=== PATIENT | female | born 1980 | race African-American/Black ===

== ENCOUNTER 2021-02-17 08:52 | Emergency (ER) | payer OTHER, SELFPAY ==
--- NOTE | ~2021-02-17 | CT_ITS ---
EXAMINATION: CT HEAD WITHOUT CONTRAST CLINICAL INFORMATION: Headache and dizziness. COMPARISON: None TECHNIQUE: Contiguous axial imaging was performed from the skull base to vertex without intravenous administration of contrast. This CT examination was performed using dose optimization techniques as appropriate, variously including the following: *Automated exposure control *Adjustment of mA and/or kV according to patient size (this includes techniques or standardized protocols for targeted exams where dose is matched to indication/reason for exam; i.e. extremities or head) *Use of iterative reconstruction technique DLP: 669 mGy-cm FINDINGS: There is no evidence of acute intracranial hemorrhage or territorial infarction. No abnormal mass effect or midline shift is seen. [place] to white matter differentiation is well preserved. No extra-axial fluid collections are identified. The ventricles are normal in size. There is no abnormal attenuation within the brain parenchyma. The osseous structures and soft tissues are normal. The mastoid air cells and visualized portions of the paranasal sinuses are well aerated. CT/CT head/brain wo con IMPRESSION: No acute intracranial process seen.
[2021-02-17 09:04] VITALS: BP 109/57; PULSE 78; RESP 14; TEMP 37; O2SAT 98; BMI 33.9
--- NOTE | 2021-02-17 09:14 | ED_ITS ---
HPI - Dizziness General Chief Complaint: Dizziness Stated Complaint: general complaints Time Seen by Provider: 02/17/21 09:14 Source: patient Mode of arrival: ambulatory Limitations: no limitations History of Present Illness MD elicited complaint: lightheadedness and other (headaches, nausea, vomiting) Onset (ago): week(s) (2 weeks ago but worse last 4 days, thinks it was related to her COVID shot) Timing: gradual onset and intermittent Severity: moderate Description: lightheadedness Exacerbating factors: nothing Relieving factors: nothing Associated symptoms: nausea, vomiting and other (headaches, ear fullness, feels blocked) Related Data Previous Rx's Medication Instructions Recorded cetirizine 10 mg tablet 10 mg PO DAILY PRN #30 tab 02/17/21 meclizine 25 mg tablet 25 mg PO TID PRN #30 tab 02/17/21 ondansetron 4 mg disintegrating 4 mg PO Q8H PRN #20 tab 02/17/21 tablet Allergies Allergy/AdvReac Type Severity Reaction Status Date / Time apple [APPLE] Allergy Mild ITCHYNESS. Unverified 03/11/20 15:30 SWELLING TO LIP AND GUMS roth Allergy Mild ITCHYNESS. Unverified 03/11/20 15:30 SWELLING TO LIP AND GUMS kiwi [KIWI] Allergy Mild ITCHNESS. Unverified 03/11/20 15:30 GUM AND LIP SWELLING peach [PEACH] Allergy Mild ITCHYNESS. Unverified 03/11/20 15:30 SWELLING TO LIP AND GUMS oxycodone [OXYCODONE] Allergy Unknown ITCHING Unverified 03/11/20 15:30 pear [PEAR] Allergy Unknown ITCHING Unverified 03/11/20 15:30 seasonal Allergy Unknown Unverified 07/17/17 00:00 Review of Systems Review of Systems: Constitutional : No Weight loss, No Fever, No Chills, No Fatigue, No Malaise ENT/Mouth : No sore throat, No Rhinorrhea Eyes: No Eye Pain, No Swelling, No Redness Cardiovascular : No Chest Pain, No SOB, No Dyspnea on Exertion, No Orthopnea, No Edema, No Palpitations Respiratory : No Cough, No Sputum, No Wheezing Gastrointestinal : No Nausea, No Vomiting, No Diarrhea, No Constipation, No abdominal Pain, No Hematochezia, No Melena Genitourinary : No Dysuria, No Urinary Frequency, No Hematuria, Musculoskeletal : No joint pain, No Myalgias, No Joint Swelling Skin : No Skin Lesions, No rash Neuro : No Weakness, No Numbness, No Dizziness, No Headache Psych : No Anxiety/Panic, No Depression Heme/Lymph: No Bruising, No Bleeding,No Lymphadenopathy Endocrine : No Polyuria, No Polydipsia All other systems reviewed and are negative [facility] Past Medical History Attestation statement: The following information was validated with the patient. Medical History Asthma Surgical History (Updated 02/17/21 @ 09:07 by Anuj Douglass) History of tonsillectomy Social History Social History (Updated 02/17/21 @ 09:45 by Sarah Tucker DO) Patient Tobacco Use Status: Never used Tobacco Use of substances other than those prescribed or required for medical reasons: No Advance Directives: No Advance Directives Information Provided: Yes Patient : No Physical Exam Vital Signs: Vital Signs: Last Vital Signs Temp 98.6 F 02/17/21 09:04 Pulse 78 02/17/21 09:04 Resp 14 02/17/21 09:04 BP 109/57 L 02/17/21 09:04 Pulse Ox 98 02/17/21 09:04 Body Mass Index 33.9 Appearance: Alert. Oriented X3. No acute distress. Eyes: Pupils equal, round and reactive to light. ENT: Pharynx normal. bilateral TMs serous effusions Neck: Normal inspection. Neck supple. CVS: Normal heart rate and rhythm. Pulses normal. Respiratory: No respiratory distress. Breath sounds normal. Abdomen: Soft and non-tender. Skin: Skin warm and dry. Normal skin color. Normal skin turgor. Extremities: No lower extremity edema. No calf ttp Neuro: Oriented X 3. No motor deficit. No sensory deficit. Course Course Course Narrative: workup negative stable for DC MDM - Dizziness MDM Narrative Medical decision making narrative: 40 yo female with asthma 2 weeks post COVID shot c/o dizziness, nausea, ears feel blocked since vaccine but worse over past 4 days at this time will need labs, IVF< CT head suspect deeper sinusitis, dispo per results and findings. Lab Data Result diagrams: 02/17/21 09:41 02/17/21 09:41 Labs: Lab Results 02/17/21 02/17/21 02/17/21 Range/Units 09:21 09:41 09:41 WBC 7.3 (4.8-10.8) X10*3/uL RBC 4.07 L (4.20-5.50) X10*6/uL Hgb 11.5 L (12.0-16.0) g/dl Hct 36.8 L (37-47) % MCV 90.4 (80-98) fL MCH 28.3 (27.0-33.0) pg MCHC 31.3 (31.0-35.0) g/dl RDW 13.3 (11.0-16.0) % Plt Count 293 (160-400) X10*3/uL MPV 9.8 (9.4-12.3) fL Immature Gran % (Auto) 0.4 (0.0-0.4) % Neut % (Auto) 68.0 (45-73) % Lymph % (Auto) 17.8 L (20-40) % [place] % (Auto) 9.8 (2-11) % Eos % (Auto) 2.9 (0-4) % Baso % (Auto) 1.1 (0-2) % Lymph # (Auto) 1.3 (1.2-4.9) X10*3/uL [place] # (Auto) 0.7 (0.1-1.2) X10*3/uL Eos # (Auto) 0.2 (0.0-0.4) X10*3/uL Baso # (Auto) 0.1 (0.0-0.2) X10*3/uL Abs Immat Gran (auto) 0.03 (0.00-0.03) X10*3/uL Absolute Neuts (auto) 5.0 (2.0-8.3) X10*3/uL Absolute Nucleated RBC 0.000 (0.0-0.012) X10*3/uL Nucleated RBC % (auto) 0.0 (0.0-0.2) /100WBC Sodium 140 (135-145) mmol/L Potassium 4.5 (3.3-5.1) mmol/L Chloride 109 H (96-108) mmol/L Carbon Dioxide 23 (22-29) mmol/L Anion Gap 13 (12-20) BUN 10 (9-16) mg/dL Creatinine 0.71 (0.5-1.4) mg/dL Estim Creat Clear Calc 122.5 Estimated GFR > 60 Random Glucose 86 (60-115) mg/dL Calcium 9.0 (8.4-10.2) mg/dL Magnesium 2.1 (1.6-2.6) mg/dL Total Bilirubin 0.6 (0.0-1.0) mg/dL Direct Bilirubin < 0.2 (0.0-0.5) mg/dL AST 24 (5-31) U/L ALT 21 (0-31) U/L Alkaline Phosphatase 49 (39-117) U/L Total Protein 6.7 (6.5-8.0) g/dL Albumin 4.1 (3.5-5.0) g/dL Lipase 56 (8-78) U/L Urine Color Urine Appearance Urine pH (5.0-8.0) Ur Specific [place] (1.005-1.025) Urine Protein (NEG-TRACE) MG/DL Urine Glucose (UA) (NEG) MG/DL Urine Ketones (NEG) MG/DL Urine Blood (NEG) Urine Nitrite (NEG) Ur Leukocyte Esterase (NEG) Urine RBC (0) /HPF Urine WBC (0-4) /HPF Ur Squamous Epith Cells /LPF Urine Bacteria /LPF Coronavirus (PCR) NEGATIVE (Negative) Influenza Type A (PCR) NEGATIVE (Negative) Influenza Type B (PCR) NEGATIVE (Negative) RSV RNA Qual (PCR) NEGATIVE (Negative) 02/17/21 Range/Units 10:36 WBC (4.8-10.8) X10*3/uL RBC (4.20-5.50) X10*6/uL Hgb (12.0-16.0) g/dl Hct (37-47) % MCV (80-98) fL MCH (27.0-33.0) pg MCHC (31.0-35.0) g/dl RDW (11.0-16.0) % Plt Count (160-400) X10*3/uL MPV (9.4-12.3) fL Immature Gran % (Auto) (0.0-0.4) % Neut % (Auto) (45-73) % Lymph % (Auto) (20-40) % [place] % (Auto) (2-11) % Eos % (Auto) (0-4) % Baso % (Auto) (0-2) % Lymph # (Auto) (1.2-4.9) X10*3/uL [place] # (Auto) (0.1-1.2) X10*3/uL Eos # (Auto) (0.0-0.4) X10*3/uL Baso # (Auto) (0.0-0.2) X10*3/uL Abs Immat Gran (auto) (0.00-0.03) X10*3/uL Absolute Neuts (auto) (2.0-8.3) X10*3/uL Absolute Nucleated RBC (0.0-0.012) X10*3/uL Nucleated RBC % (auto) (0.0-0.2) /100WBC Sodium (135-145) mmol/L Potassium (3.3-5.1) mmol/L Chloride (96-108) mmol/L Carbon Dioxide (22-29) mmol/L Anion Gap (12-20) BUN (9-16) mg/dL Creatinine (0.5-1.4) mg/dL Estim Creat Clear Calc Estimated GFR Random Glucose (60-115) mg/dL Calcium (8.4-10.2) mg/dL Magnesium (1.6-2.6) mg/dL Total Bilirubin (0.0-1.0) mg/dL Direct Bilirubin (0.0-0.5) mg/dL AST (5-31) U/L ALT (0-31) U/L Alkaline Phosphatase (39-117) U/L Total Protein (6.5-8.0) g/dL Albumin (3.5-5.0) g/dL Lipase (8-78) U/L Urine Color YELLOW Urine Appearance HAZY Urine pH 7.5 (5.0-8.0) Ur Specific [place] 1.010 (1.005-1.025) Urine Protein NEG (NEG-TRACE) MG/DL Urine Glucose (UA) NEG (NEG) MG/DL Urine Ketones NEG (NEG) MG/DL Urine Blood NEG (NEG) Urine Nitrite NEG (NEG) Ur Leukocyte Esterase 1+ H (NEG) Urine RBC 0 (0) /HPF Urine WBC 1-4 (0-4) /HPF Ur Squamous Epith Cells 3+ /LPF Urine Bacteria 1+ /LPF Coronavirus (PCR) (Negative) Influenza Type A (PCR) (Negative) Influenza Type B (PCR) (Negative) RSV RNA Qual (PCR) (Negative) Discharge Plan Discharge Clinical Impression: Dizziness Patient Disposition: Home, Self-Care Instructions: Allergies (ED), Dizziness (ED) Additional Instructions: return to ED for any worsening symptoms or concerns Prescriptions: New meclizine 25 mg tablet 25 mg PO TID PRN (Reason: dizziness) Qty: 30 RF: 0 ondansetron 4 mg tablet,disintegrating 4 mg PO Q8H PRN (Reason: nausea and vomiting) Qty: 20 RF: 0 cetirizine 10 mg tablet 10 mg PO DAILY PRN (Reason: allergy symptoms) Qty: 30 RF: 0 Stand Alone Forms: Work/School Release
[2021-02-17] MEDS: ondansetron HCL 4 MG/2 ML VIAL IVPUSH (09:42)
[2021-02-17] MEDS: 0.9 % Sodium Chloride 1,000 ML 999 ML IV (09:42)
[2021-02-17 09:46] LABS: MANUAL DIFF FLAG NO
[2021-02-17 09:50] LABS: Basophils Absolute Auto 0.1 X10*3/uL (0.0-0.2); Basophils Percent Auto 1.1 % (0-2); Eosinophils Absolute Auto 0.2 X10*3/uL (0.0-0.4); Eosinophils Percent Auto 2.9 % (0-4); Hematocrit 36.8 % (37-47); Hemoglobin 11.5 g/dl (12.0-16.0); Imm Gran Abs Auto 0.03 X10*3/uL (0.00-0.03); Imm Gran Pct Auto 0.4 % (0.0-0.4); Lymphocytes Absolute Auto 1.3 X10*3/uL (1.2-4.9); Lymphocytes Percent Auto 17.8 % (20-40); Mean Corpuscular HGB Conc 31.3 g/dl (31.0-35.0); Mean Corpuscular Hemoglobin 28.3 pg (27.0-33.0); Mean Corpuscular Volume 90.4 fL (80-98); Mean Platelet Volume 9.8 fL (9.4-12.3); Monocytes Absolute Auto 0.7 X10*3/uL (0.1-1.2); Monocytes Percent Auto 9.8 % (2-11); Platelet Count 293 X10*3/uL (160-400); Red Blood Count 4.07 X10*6/uL (4.20-5.50); Red Cell Distribution Width 13.3 % (11.0-16.0); White Blood Count 7.3 X10*3/uL (4.8-10.8)
[2021-02-17 10:04] LABS: Influenza A PCR NEGATIVE (Negative); Influenza B PCR NEGATIVE (Negative); Resp Syncy Virus RNA Qual PCR NEGATIVE (Negative); SARS COV2 PCR INHOUSE NEGATIVE (Negative)
[2021-02-17 10:18] LABS: Alanine Aminotransferase 21 U/L (0-31); Albumin Level 4.1 g/dL (3.5-5.0); Alkaline Phosphatase 49 U/L (39-117); Anion Gap 13 (12-20); Aspartate Amino Transferase 24 U/L (5-31); Bilirubin Direct < 0.2 mg/dL (0.0-0.5); Bilirubin Total 0.6 mg/dL (0.0-1.0); Blood Urea Nitrogen 10 mg/dL (9-16); Carbon Dioxide 23 mmol/L (22-29); Chloride 109 mmol/L (96-108); Creatinine Clr Calc Pharmacy 122.5; Estimated Glomerular Filt Rate > 60; Glucose Random 86 mg/dL (60-115); Lipase 56 U/L (8-78); Magnesium 2.1 mg/dL (1.6-2.6); Potassium 4.5 mmol/L (3.3-5.1); Sodium 140 mmol/L (135-145); Total Protein 6.7 g/dL (6.5-8.0)
[2021-02-17 10:44] LABS: Glucose Urine UA NEG (NEG); Leukocyte Esterase Urine 1+ (NEG); Nitrite Urine NEG (NEG); PH 7.5 (5.0-8.0); UACC Culture Trigger YES; Urine Blood NEG (NEG); Urine Ketones NEG (NEG); Urine Protein NEG (NEG-TRACE)
[2021-02-17 10:48] LABS: Appearance Urine HAZY; Color Urine YELLOW
[2021-02-17 11:14] LABS: Bacteria Urine 1+ /LPF; RBC Urine 0 /HPF (0); Squamous Epithelial Cell Urine 3+ /LPF
== END 2021-02-17 11:43 | disposition home or self-care (01) ==
PROVIDERS: Emergency Provider Emergency Medicine
DX: R42 Dizziness and giddiness (principal); Z20.822 Contact with and (suspected) exposure to COVID-19; R11.0 Nausea; J45.909 Unspecified asthma, uncomplicated
CPT/HCPCS: 0241U; 36415; 70450; 80048; 80076; 81001; 83690; 83735; 85025; 87086; 96361; 96374; 99284; J2405

== ENCOUNTER 2021-03-17 03:55 | Emergency (ER) | payer OTHER, SELFPAY ==
--- NOTE | ~2021-03-17 | XR_ITS ---
EXAMINATION: XR CHEST CLINICAL INFORMATION: Cough. COMPARISON: None TECHNIQUE: Frontal view of the chest was obtained. FINDINGS: The lungs are well-expanded and clear. Heart size and pulmonary vascularity is normal. No gross bony abnormality seen. XR/XR chest 1V IMPRESSION: Unremarkable chest exam.
--- NOTE | 2021-03-17 07:36 | ED_ITS ---
HPI - Asthma General Chief Complaint: Chest Pain Time Seen by Provider: 03/17/21 07:10 Source: patient Mode of arrival: ambulatory Limitations: no limitations History of Present Illness MD complaint: asthma attack , shortness of breath and wheezing Onset (ago): day(s) (2) Severity: moderate Context: none known Associated symptoms: productive cough and other (sore throat) Asthma History: childhood onset Treatments Prior to Arrival: other (has rescue inhalers) Related Data Previous Rx's Medication Instructions Recorded cetirizine 10 mg tablet 10 mg PO DAILY PRN #30 tab 02/17/21 meclizine 25 mg tablet 25 mg PO TID PRN #30 tab 02/17/21 ondansetron 4 mg disintegrating 4 mg PO Q8H PRN #20 tab 02/17/21 tablet albuterol sulfate 2.5 mg INHALATION Q4-6H PRN #75 ml 03/17/21 azithromycin 500 mg tablet See Rx Instructions .ROUTE 03/17/21 .COMPLEX #6 tab prednisone 20 mg tablet 60 mg PO DAILY 4 Days #12 tab 03/17/21 Allergies Allergy/AdvReac Type Severity Reaction Status Date / Time apple [APPLE] Allergy Mild ITCHYNESS. Unverified 03/11/20 15:30 SWELLING TO LIP AND GUMS roth Allergy Mild ITCHYNESS. Unverified 03/11/20 15:30 SWELLING TO LIP AND GUMS kiwi [KIWI] Allergy Mild ITCHNESS. Unverified 03/11/20 15:30 GUM AND LIP SWELLING peach [PEACH] Allergy Mild ITCHYNESS. Unverified 03/11/20 15:30 SWELLING TO LIP AND GUMS oxycodone [OXYCODONE] Allergy Unknown ITCHING Unverified 03/11/20 15:30 pear [PEAR] Allergy Unknown ITCHING Unverified 03/11/20 15:30 seasonal Allergy Unknown Unverified 07/17/17 00:00 Review of Systems Review of Systems: Constitutional : No Fever, No Chills ENT/Mouth : No Hoarseness, pos sore throat, No Rhinorrhea Eyes: No Redness, No Discharge, No Vision Changes Cardiovascular : No Chest Pain, positive SOB, positive Dyspnea on Exertion, No Edema Respiratory : positive Cough, No Sputum, positive Wheezing, Gastrointestinal : No Nausea, No Vomiting, No Diarrhea, No abdominal Pain Genitourinary : No Dysuria, No Hematuria Musculoskeletal : No joint pain, No Myalgias Skin : No rash Neuro : No Weakness, No Numbness, No Headache Psych : No anxiety, depression Heme/Lymph: No Bruising, No Bleeding Endocrine : No Polyuria, No Polydipsia All other systems reviewed and are negative [facility] Past Medical History Attestation statement: The following information was validated with the patient. Medical History Asthma Surgical History History of tonsillectomy Social History Social History Patient Tobacco Use Status: Never used Tobacco Advance Directives: No Advance Directives Information Provided: No Physical Exam Vital Signs: Vital Signs: Last Vital Signs Temp 99.1 F 03/17/21 07:53 Pulse 86 03/17/21 09:43 Resp 18 03/17/21 08:34 BP 115/50 L 03/17/21 08:34 Pulse Ox 99 03/17/21 08:34 Body Mass Index 33.9 Appearance: Alert. Oriented X3. No acute distress. Eyes: Pupils equal, round and reactive to light. ENT: Pharynx mild erythema no tonsils - normal TMs bilaterally Neck: Normal inspection. Neck supple. CVS: Normal heart rate and rhythm. Pulses normal. Respiratory: No respiratory distress. Breath sounds diffuse exp wheezes Abdomen: Soft and nontender. Skin: Skin warm and dry. Normal skin color. Normal skin turgor. Extremities: No lower extremity edema. No calf ttp Neuro: Oriented X 3. No motor deficit. No sensory deficit. Course Course Course Narrative: I think the BP is in error she is not tachycardic and looks well will recheck if normal will cancel labs as this seems like a straightforward bronchitis and not sepsis BP recheck stable no need for lab workup states she has a hard time with INH - has no PCP for neb machine will redose neb, patient requesting strep swab - mild erythema no patches noted strep negative will be treated as bronchitis I ordered another neb for the patient, she told me the INH makes her wretch, RT was called - apparently the patient refused treatment and went home MDM - Asthma MDM Narrative Medical decision making narrative: 40 yo female with hx of asthma here with cough and wheezing for 2 days - at this time suspect asthma, she has no ACS risk factors, no OCPs doubt PE - CXR, COVID swab, oral steroids, albuterol 5mg neb - dispo per results and improvement Lab Data Labs: Lab Results 03/17/21 03/17/21 Range/Units 09:14 10:26 COVID-19 (TIMOTHY) Negative (Negative) COVID-19 Clin Com See Note S. pyogenes GrpA ANGELES Negative (Negative) Discharge Plan Discharge Clinical Impression: Bronchitis Asthma Qualifiers: Asthma severity: moderate Asthma persistence: persistent Asthma complication type: with acute exacerbation Qualified Code(s): J45.41 - Moderate persistent asthma with (acute) exacerbation Patient Disposition: Home, Self-Care Instructions: Asthma (ED), Acute Bronchitis (ED) Additional Instructions: return to ED for any worsening symptoms or concerns NEGATIVE COVID NEGATIVE STREP NEGATIVE CHEST XRAY Prescriptions: New albuterol sulfate 2.5 mg /3 mL (0.083 %) solution for nebulization 2.5 mg inhalation Q4-6H PRN (Reason: bronchospasm) Qty: 75 RF: 0 azithromycin 500 mg tablet See Rx Instructions .ROUTE .COMPLEX Qty: 6 RF: 0 prednisone 20 mg tablet 60 mg PO DAILY 4 Days Qty: 12 RF: 0 No Action meclizine 25 mg tablet 25 mg PO TID PRN (Reason: dizziness) Qty: 30 RF: 0 ondansetron 4 mg tablet,disintegrating 4 mg PO Q8H PRN (Reason: nausea and vomiting) Qty: 20 RF: 0 cetirizine 10 mg tablet 10 mg PO DAILY PRN (Reason: allergy symptoms) Qty: 30 RF: 0 Stand Alone Forms: Work/School Release Interventions: ED Discharge Assessment Last Done: 03/17/21 11:08 Discharge Date/Time: 03/17/21 11:09
[2021-03-17 07:53] VITALS: BP 85/66; PULSE 76; RESP 18; TEMP 37.3; O2SAT 100; BMI 33.9
[2021-03-17] MEDS: Albuterol Sulfate (0.083%) 2.5 MG/3 ML VIAL.NEB 5 MG INHALE (08:30)
[2021-03-17 08:34] VITALS: BP 115/50; PULSE 76; PULSE 87; RESP 18; O2SAT 99
[2021-03-17] MEDS: Benzonatate 100 MG CAPSULE 200 MG PO (09:18)
[2021-03-17] MEDS: predniSONE 20 MG TABLET 60 MG PO (09:19)
[2021-03-17] MEDS: Albuterol Sulfate 90 MCG 8 GM INHALER 2 PUFF INHALE (09:41)
[2021-03-17 09:43] VITALS: PULSE 86; O2SAT 97
[2021-03-17 09:47] LABS: COVID-19 Test Negative (Negative)
[2021-03-17 10:55] LABS: Strep A Nucleic Acid Negative (Negative)
--- NOTE | 2021-03-18 08:55 | ECG_ITS ---
Test Reason : CP Blood Pressure : / mmHG Vent. Rate : 078 BPM Atrial Rate : 078 BPM P-R Int : 120 ms QRS Dur : 086 ms QT Int : 366 ms P-R-T Axes : 061 052 032 degrees QTc Int : 417 ms Normal sinus rhythm Normal ECG When compared with ECG of 16-AUG-2015 08:49, Heart rate has increased Referred By: Sarah Tucker Electronically Signed By:ROBERT FONSECA
== END 2021-03-17 11:09 | disposition home or self-care (01) ==
PROVIDERS: Emergency Provider Emergency Medicine
DX: J45.41 Moderate persistent asthma with (acute) exacerbation (principal); R07.9 Chest pain, unspecified; R06.02 Shortness of breath; R05 Cough; Z20.822 Contact with and (suspected) exposure to COVID-19; Z79.899 Other long term (current) drug therapy
CPT/HCPCS: 36415; 71045; 87635; 87651; 93005; 94640; 94644; 96360; 99283; 99285

== ENCOUNTER 2021-03-18 11:15 | Observation (INO) | payer SELFPAY ==
[2021-03-18] VITALS (10 sets, daily range): BP systolic 112–135; BP diastolic 59–78; PULSE 84–130; RESP 16–22; TEMP 35.6–36.9; O2SAT 96–100; BMI 33.9
--- NOTE | ~2021-03-18 | XR_ITS ---
EXAMINATION: XR CHEST CLINICAL INFORMATION: Shortness breath COMPARISON: March 17, 2021 and November 27, 2016 TECHNIQUE: AP portable view of the chest was obtained. FINDINGS: No significant abnormality is noted involving the heart, lungs, mediastinum, bony thorax or soft tissues. XR/XR chest 1V IMPRESSION: No acute parenchymal disease.
--- NOTE | 2021-03-18 11:27 | ED_ITS ---
HPI - SOB/Dyspnea General Chief Complaint: Asthma Stated Complaint: ASTHMA Time Seen by Provider: 03/18/21 11:26 Source: patient Mode of arrival: ambulatory Limitations: no limitations History of Present Illness HPI Narrative: 40 y/o female past medical history of asthma who presents to the emergency department for the 2nd day in a row with increasing shortness of breath, and wheezing. Yesterday she left the emergency department (eloped) prior to another neb being administered, but was sent home with steroids, a rescue inhaler and a Z-Harry. She has taken her inhaler, started her steroids, and has taken the 1st dose of a Z-Harry. She also states that she borrowed a neb machine from her friend, and has taken 2 hour long albuterol treatments at home, last one was about 20 minutes prior to her arrival, with little to no relief. She has multiple admissions in the past some requiring BiPAP. She also reports the symptoms of upper respiratory infection, she states she has had a runny nose, and a sore throat that started yesterday and has been worsening. She has never been intubated for asthma in the past. She is not a smoker. She denies any pain. She denies fevers, chills, chest pain, abdominal pain. MD elicited complaint: shortness of breath and asthma attack Pertinent past history: asthma Onset (ago): day(s) (2) Context: recent illness Timing: constant Severity: moderate Exacerbating factors: cold air Relieving factors: nothing Known history of: asthma Associated symptoms: pain with inspiration, cough, wheezing, nausea/vomiting and chest congestion Treatment prior to arrival: none Related Data Home oxygen amount: none Previous Rx's Medication Instructions Recorded ondansetron 4 mg disintegrating 4 mg PO Q8H PRN #20 tab 02/17/21 tablet albuterol sulfate 2.5 mg INHALATION Q4-6H PRN #75 ml 03/17/21 azithromycin 500 mg tablet See Rx Instructions .ROUTE 03/17/21 .COMPLEX #6 tab prednisone 20 mg tablet 60 mg PO DAILY 4 Days #12 tab 03/17/21 Allergies Allergy/AdvReac Type Severity Reaction Status Date / Time apple [APPLE] Allergy Mild ITCHYNESS. Verified 03/18/21 11:54 SWELLING TO LIP AND GUMS roth Allergy Mild ITCHYNESS. Verified 03/18/21 11:54 SWELLING TO LIP AND GUMS kiwi [KIWI] Allergy Mild ITCHNESS. Verified 03/18/21 11:54 GUM AND LIP SWELLING peach [PEACH] Allergy Mild ITCHYNESS. Verified 03/18/21 11:54 SWELLING TO LIP AND GUMS oxycodone [OXYCODONE] Allergy Unknown ITCHING Verified 03/18/21 11:54 pear [PEAR] Allergy Unknown ITCHING Verified 03/18/21 11:54 seasonal Allergy Unknown Cough Verified 03/18/21 11:54 Review of Systems Review of Systems: Constitutional: No Fever, No Chills ENT/Mouth: + sore throat, + Rhinorrhea, No Swallowing Difficulty Eyes: No Eye Pain, No Swelling, No Redness Cardiovascular: No Chest Pain, + SOB, No Orthopnea, No Edema Respiratory: No Cough, No Sputum, + Wheezing, + No dyspnea Gastrointestinal: No Nausea, No Vomiting, No Diarrhea, No abdominal Pain Genitourinary: No Dysuria, No Urinary Frequency, No Hematuria Musculoskeletal: No joint pain, No Myalgias Skin: No Skin Lesions, No rash Neuro: No Weakness, No Numbness, No Dizziness, No Headache Psych: No Anxiety/Panic, No Depression Heme/Lymph: No Bruising, No Lymphadenopathy Endocrine: No Polyuria, No Polydipsia PMFSH Past Medical History Attestation statement: The following information was validated with the patient. Medical History Asthma Surgical History History of tonsillectomy Social History Social History Alcohol intake: never Patient Tobacco Use Status: Never used Tobacco Use of substances other than those prescribed or required for medical reasons: No Advance Directives: No Advance Directives Information Provided: No Patient : No Physical Exam Vital Signs: Vital Signs: Last Vital Signs Temp 98.4 F 03/18/21 13:49 Pulse 130 H 03/18/21 14:00 Resp 22 H 03/18/21 14:00 BP 113/59 L 03/18/21 14:00 Pulse Ox 99 03/18/21 14:00 Body Mass Index 33.9 Appearance: Alert. Oriented X3. + mild acute distress. + speaking in short sentences + increased work of breahting Eyes: Pupils equal, round and reactive to light. ENT: Pharynx normal. Neck: Normal inspection. Neck supple. CVS: + fast rate normal rhythm (in the 110s). Pulses normal. Respiratory: + mild respiratory distress. + expiratory wheezing and rhonchi to bilateral lung daniel. Abdomen: Soft and nontender. +BS x4 Skin: Skin warm and dry. + pallor. Normal skin turgor. No rashes. Extremities: No lower extremity edema. Negative Chari's sign Neuro: Oriented X 3. No motor deficit. No sensory deficit. Course Course Course Narrative: 40-year-old female with a past medical history of asthma presenting to the emergency department for the 2nd day in a row with dyspnea, and wheezing. She was seen here yesterday, but eloped prior to her 2nd n ebulizing treatment. However medications were sent to her pharmacy which include a Z-Harry, a rescue inhaler, and steroids. She states she has started all of these medications, but has felt no relief. Today she also reports rhinorrhea, which she describes as green in color, she also states she has been having a sore throat since yesterday. Prior to presenting to the emergency department she took 2 hour long nebulizing treatments at home, she states she borrowed a friend's machine. The last treatment was 20 minutes prior to her arrival. She has been admitted multiple times for her asthma, and has at times required BiPAP. She has never been intubated. She is not a smoker. She denies fevers, chills and chest pain. Physical examination she is speaking in short sentences and appears to be in mild respiratory distress. Upon auscultation there are rhonchi and wheezes noted to bilateral lungs. There is also increased work of breathing. Likely consistent with an asthma exacerbation. A fast irregular rhythm is also noted (around 110), likely sinus tachycardia. Plan- basic labs, chest x-ray, COVID, Viral PCR, UA. She will be placed on continuous cardiac monitoring. She will be given albuterol, Mag, Solu-Medrol, and Zofran. X-ray shows no acute parenchymal disease Reevaluation(s) Reevaluation #1: Re-evaluated patient after she received hour long treatment. She is still reporting symptoms, her lungs still reveal bilateral rhonchi and wheezing. Still increased work of breathing. She states she feels fatigued. An ABG has been ordered at this time. I have also reached out to Dr. Strong hospitalist for admission. Time: 15:31 Reevaluation #2: Patient admitted for further management. MDM - SOB/Dyspnea Lab Data Result diagrams: 03/18/21 11:42 03/18/21 11:42 Labs: Lab Results 03/18/21 03/18/21 03/18/21 Range/Units 11:42 11:42 11:42 WBC 13.7 H (4.8-10.8) X10*3/uL RBC 4.09 L (4.20-5.50) X10*6/uL Hgb 11.9 L (12.0-16.0) g/dl Hct 36.4 L (37-47) % MCV 89.0 (80-98) fL MCH 29.1 (27.0-33.0) pg MCHC 32.7 (31.0-35.0) g/dl RDW 13.4 (11.0-16.0) % Plt Count 323 (160-400) X10*3/uL MPV 9.8 (9.4-12.3) fL Immature Gran % (Auto) 0.4 (0.0-0.4) % Neut % (Auto) 90.3 H (45-73) % Lymph % (Auto) 5.0 L (20-40) % [place] % (Auto) 4.1 (2-11) % Eos % (Auto) 0.0 (0-4) % Baso % (Auto) 0.2 (0-2) % Lymph # (Auto) 0.7 L (1.2-4.9) X10*3/uL [place] # (Auto) 0.6 (0.1-1.2) X10*3/uL Eos # (Auto) 0.0 (0.0-0.4) X10*3/uL Baso # (Auto) 0.0 (0.0-0.2) X10*3/uL Abs Immat Gran (auto) 0.05 H (0.00-0.03) X10*3/uL Absolute Neuts (auto) 12.4 H (2.0-8.3) X10*3/uL Absolute Nucleated RBC 0.000 (0.0-0.012) X10*3/uL Nucleated RBC % (auto) 0.0 (0.0-0.2) /100WBC Smear Tech's Comments VERIFIED Sodium 138 (135-145) mmol/L Potassium 4.4 (3.3-5.1) mmol/L Chloride 108 (96-108) mmol/L Carbon Dioxide 23 (22-29) mmol/L Anion Gap 11 L (12-20) BUN 6 L (9-16) mg/dL Creatinine 0.72 (0.5-1.4) mg/dL Estim Creat Clear Calc 120.8 Estimated GFR > 60 Random Glucose 122 H (60-115) mg/dL Calcium 9.6 D (8.4-10.2) mg/dL Magnesium 1.8 (1.6-2.6) mg/dL Urine Color Urine Appearance Urine pH (5.0-8.0) Ur Specific [place] (1.005-1.025) Urine Protein (NEG-TRACE) MG/DL Urine Glucose (UA) (NEG) MG/DL Urine Ketones (NEG) MG/DL Urine Blood (NEG) Urine Nitrite (NEG) Ur Leukocyte Esterase (NEG) Urine RBC (0) /HPF Urine WBC (0-4) /HPF Ur Squamous Epith Cells /LPF Urine Bacteria /LPF COVID-19 (TIMOTHY) Negative (Negative) COVID-19 Clin Com See Note 03/18/21 Range/Units 12:03 WBC (4.8-10.8) X10*3/uL RBC (4.20-5.50) X10*6/uL Hgb (12.0-16.0) g/dl Hct (37-47) % MCV (80-98) fL MCH (27.0-33.0) pg MCHC (31.0-35.0) g/dl RDW (11.0-16.0) % Plt Count (160-400) X10*3/uL MPV (9.4-12.3) fL Immature Gran % (Auto) (0.0-0.4) % Neut % (Auto) (45-73) % Lymph % (Auto) (20-40) % [place] % (Auto) (2-11) % Eos % (Auto) (0-4) % Baso % (Auto) (0-2) % Lymph # (Auto) (1.2-4.9) X10*3/uL [place] # (Auto) (0.1-1.2) X10*3/uL Eos # (Auto) (0.0-0.4) X10*3/uL Baso # (Auto) (0.0-0.2) X10*3/uL Abs Immat Gran (auto) (0.00-0.03) X10*3/uL Absolute Neuts (auto) (2.0-8.3) X10*3/uL Absolute Nucleated RBC (0.0-0.012) X10*3/uL Nucleated RBC % (auto) (0.0-0.2) /100WBC Smear Tech's Comments Sodium (135-145) mmol/L Potassium (3.3-5.1) mmol/L Chloride (96-108) mmol/L Carbon Dioxide (22-29) mmol/L Anion Gap (12-20) BUN (9-16) mg/dL Creatinine (0.5-1.4) mg/dL Estim Creat Clear Calc Estimated GFR Random Glucose (60-115) mg/dL Calcium (8.4-10.2) mg/dL Magnesium (1.6-2.6) mg/dL Urine Color YELLOW Urine Appearance CLEAR Urine pH 6.0 (5.0-8.0) Ur Specific [place] 1.010 (1.005-1.025) Urine Protein NEG (NEG-TRACE) MG/DL Urine Glucose (UA) NEG (NEG) MG/DL Urine Ketones NEG (NEG) MG/DL Urine Blood TRACE (NEG) Urine Nitrite NEG (NEG) Ur Leukocyte Esterase NEG (NEG) Urine RBC 0-2 (0) /HPF Urine WBC 0 (0-4) /HPF Ur Squamous Epith Cells 1+ /LPF Urine Bacteria NONE /LPF COVID-19 (TIMOTHY) (Negative) COVID-19 Clin Com Critical Care Time Critical Care Time Critical Care Time: Yes Total Critical Care Time: 42 Attestation: I have personally provided critical care time exclusive of time spent on separately billable procedures. Time includes review of lab data, radiology results, discussion with consultants, and monitoring for potential decompensation. Intervention performed as documented. Discharge Plan Discharge Clinical Impression: Asthma with acute exacerbation Patient Disposition: Admitted As Inpatient Prescriptions: No Action albuterol sulfate 2.5 mg /3 mL (0.083 %) solution for nebulization 2.5 mg inhalation Q4-6H PRN (Reason: bronchospasm) Qty: 75 RF: 0 azithromycin 500 mg tablet See Rx Instructions .ROUTE .COMPLEX Qty: 6 RF: 0 prednisone 20 mg tablet 60 mg PO DAILY 4 Days Qty: 12 RF: 0 ondansetron 4 mg tablet,disintegrating 4 mg PO Q8H PRN (Reason: nausea and vomiting) Qty: 20 RF: 0
[2021-03-18 11:53] LABS: Basophils Percent Auto 0.2 % (0-2); Hematocrit 36.4 % (37-47); Hemoglobin 11.9 g/dl (12.0-16.0); Imm Gran Abs Auto 0.05 X10*3/uL (0.00-0.03); Imm Gran Pct Auto 0.4 % (0.0-0.4); Lymphocytes Absolute Auto 0.7 X10*3/uL (1.2-4.9); MANUAL DIFF FLAG SCAN; Mean Corpuscular HGB Conc 32.7 g/dl (31.0-35.0); Mean Corpuscular Hemoglobin 29.1 pg (27.0-33.0); Mean Platelet Volume 9.8 fL (9.4-12.3); Monocytes Absolute Auto 0.6 X10*3/uL (0.1-1.2); Monocytes Percent Auto 4.1 % (2-11); Neutrophils Absolute Auto 12.4 X10*3/uL (2.0-8.3); Neutrophils Percent Auto 90.3 % (45-73); Platelet Count 323 X10*3/uL (160-400); Red Blood Count 4.09 X10*6/uL (4.20-5.50); Red Cell Distribution Width 13.4 % (11.0-16.0); SCAN SMEAR FLAG 1; White Blood Count 13.7 X10*3/uL (4.8-10.8)
[2021-03-18] MEDS: ondansetron HCL 4 MG/2 ML VIAL IVPUSH ×2 (11:54→15:35)
[2021-03-18] MEDS: Magnesium Sulfate/H2O 2 GM/50 ML PIGGYBACK IV (11:54)
[2021-03-18] MEDS: methylPREDNISolone Sod Succ 125 MG/2 ML VIAL IVPUSH (11:54)
[2021-03-18] MEDS: Albuterol Sulfate (0.083%) 2.5 MG/3 ML VIAL.NEB 10 MG INHALE (11:56)
--- NOTE | 2021-03-18 11:57 | PHA.MEDREC ---
Pharmacy Consult ? Medication Reconciliation Pharmacy has completed the medication reconciliation. There are no remarkable issues. Patient only has prescriptions from yesterday. Camila Larose, ErnstD
--- NOTE | 2021-03-18 12:04 | PC.NURSE ---
Pt vomiting after starting treatment. states this happens with inhailer at home. treatment held and reglan requested
[2021-03-18 12:08] LABS: Anion Gap 11 (12-20); Blood Urea Nitrogen 6 mg/dL (9-16); Calcium 9.6 mg/dL (8.4-10.2); Carbon Dioxide 23 mmol/L (22-29); Chloride 108 mmol/L (96-108); Creatinine Clr Calc Pharmacy 120.8; Estimated Glomerular Filt Rate > 60; Glucose Random 122 mg/dL (60-115); Magnesium 1.8 mg/dL (1.6-2.6); Potassium 4.4 mmol/L (3.3-5.1); Sodium 138 mmol/L (135-145)
[2021-03-18 12:11] LABS: SLIDE REVIEW VERIFIED
[2021-03-18] MEDS: Metoclopramide HCl 10 MG/2 ML VIAL IVPUSH (12:15)
[2021-03-18 12:22] LABS: Appearance Urine CLEAR; Color Urine YELLOW; Glucose Urine UA NEG (NEG); Leukocyte Esterase Urine NEG (NEG); Nitrite Urine NEG (NEG); UACC Culture Trigger NO; Urine Blood TRACE (NEG); Urine Ketones NEG (NEG); Urine Protein NEG (NEG-TRACE)
[2021-03-18 12:37] LABS: COVID-19 Test Negative (Negative)
[2021-03-18 12:50] LABS: RBC Urine 0-2 /HPF (0); Squamous Epithelial Cell Urine 1+ /LPF; WBC Urine 0 /HPF (0-4)
[2021-03-18] MEDS: Butalb/Acetamin/Caff 50/325/40 TABLET 1 TAB PO (13:48)
--- NOTE | 2021-03-18 15:18 | PC.NURSE ---
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 reports not feeling any better. unlabored until after wrenching
[2021-03-18 15:51] LABS: Adenovirus PCR Not Detected (Not Detect.); Bordetella parapertussis PCR Not Detected (Not Detect.); Bordetella pertussis PCR Not Detected (Not Detect.); Chlamydia pneumoniae PCR Not Detected (Not Detect.); Coronavirus 229E PCR Not Detected (Not Detect.); Coronavirus HKU1 PCR Not Detected (Not Detect.); Coronavirus NL63 PCR Not Detected (Not Detect.); Coronavirus OC43 PCR Not Detected (Not Detect.); Human metapneumovirus PCR Not Detected (Not Detect.); Influenza A PCR Not Detected (Not Detect.); Influenza B PCR Not Detected (Not Detect.); Mycoplasma pneumoniae PCR Not Detected (Not Detect.); Parainfluenza 1 PCR Not Detected (Not Detect.); Parainfluenza 2 PCR Not Detected (Not Detect.); Parainfluenza 3 PCR Not Detected (Not Detect.); Parainfluenza 4 PCR Not Detected (Not Detect.); RSV PCR Not Detected (Not Detect.); SARS-CoV-2 PCR Not Detected (Not Detect.)
--- NOTE | 2021-03-18 16:08 | P.HPHOSP_ITS ---
History of Present Illness Date of Service: 03/18/21 Attending physician on admission: Yaa Tapia Chief Complaint: Shortness of breath and cough 40-year-old female who has past medical history of asthma-gets admitted to the hospital for asthma exacerbation at least 2 times a year, did not require any BiPAP or intubation so far. \she said she came to the hospital because she is having shortness of breath and cough which is worsening from last 2-3 days and she was in the emergency room yesterday was given nebs steroids and azithromycin and she somewhat feel better med home and felt again shortness of breath and cough so and up in the hospital. In the hospital she caught nebs, steroids, azithromycin and a shortness of breath seems somewhat better but she is still very scared to go home since it is becoming a recurrent issue. ED attending requested for asthma exacerbation. Patient says she has cough, also get nauseated when she gets nebs. She says this cough with sputum greenish yellow. Denies any new complaint of chest pain or shortnesor abdominal pain or fever or chills or nausea or vomiting Denies any cough Denies any weakness or numbness. She denies any smoking or alcohol use or recreation drug use. Review of Systems Review of Systems: Yes all other systems are reviewed and are negative [facility] Medical History Asthma Pertinent family history: She denied denies family history of asthma or recent travel or any sick contacts. Surgical History History of tonsillectomy Social History Alcohol intake: never Patient Tobacco Use Status: Never used Tobacco Use of substances other than those prescribed or required for medical reasons: No Advance Directives: No Advance Directives Information Provided: No Patient : No Meds Allergies Allergy/AdvReac Type Severity Reaction Status Date / Time apple [APPLE] Allergy Mild ITCHYNESS. Verified 03/18/21 11:54 SWELLING TO LIP AND GUMS roth Allergy Mild ITCHYNESS. Verified 03/18/21 11:54 SWELLING TO LIP AND GUMS kiwi [KIWI] Allergy Mild ITCHNESS. Verified 03/18/21 11:54 GUM AND LIP SWELLING peach [PEACH] Allergy Mild ITCHYNESS. Verified 03/18/21 11:54 SWELLING TO LIP AND GUMS oxycodone [OXYCODONE] Allergy Unknown ITCHING Verified 03/18/21 11:54 pear [PEAR] Allergy Unknown ITCHING Verified 03/18/21 11:54 seasonal Allergy Unknown Cough Verified 03/18/21 11:54 Active Medications: Current Medications Albuterol/Ipratropium (Albuterol/Iprat 2.5/0.5mg 3 Ml Ampul.Neb) 3 ml INHALE Q4H OMER Guaifenesin (Guaifenesin 100 Mg/5 Ml Liquid) 5 ml PO Q4H OMER Azithromycin 500 mg/ Sodium (Chloride) 250 mls @ 125 mls/hr IV DAILY [facility] Methylprednisolone Sodium Succinate (Methylprednisolone Sod Succ 40 Mg/Ml Vial) 40 mg IVPUSH BID STA Stop: 03/18/21 16:02 Pharmacy Consult (Consult Rx Perform Med Rec) 1 each MISCELLANE ONCE PRN PRN Reason: Consult order Sodium Chloride (0.9 % Sodium Chloride Flush 3 Ml Syringe) 3 ml IVFLUSH QSHIFT [facility] Physical Exam Vital Signs and Narrative: Vital Signs: Last Vital Signs Temp 98.4 F 03/18/21 13:49 Pulse 130 H 03/18/21 14:00 Resp 22 H 03/18/21 14:00 BP 113/59 L 03/18/21 14:00 Pulse Ox 99 03/18/21 14:00 Body Mass Index 33.9 Physical exam: Appearance: Alert.? Oriented X3.? not in distress.? Eyes: Pupils equal, round and reactive to light.? Sclera nonicteric.? ENT: Pharynx normal.? Moist mucous membranes. cvs: rrr, [id number] , no murmur res: Air entry seems diminished, has bilateralrhonchii abd: no rebound or guarding ,nt, bs present. ext pulses present , no cyanosis ,Gait well balanced well coordinated. neuro: axo3 , nonfocal. Results Labs CBC and Chem 7: 03/18/21 11:42 03/18/21 11:42 Labs: Laboratory Results - last 24 hr 03/18/21 03/18/21 03/18/21 11:42 11:42 11:42 MCV 89.0 MCH 29.1 MCHC 32.7 RDW 13.4 Plt Count 323 MPV 9.8 Immature Gran % (Auto) 0.4 Neut % (Auto) 90.3 H Lymph % (Auto) 5.0 L [place] % (Auto) 4.1 Eos % (Auto) 0.0 Baso % (Auto) 0.2 Lymph # (Auto) 0.7 L [place] # (Auto) 0.6 Eos # (Auto) 0.0 Baso # (Auto) 0.0 Abs Immat Gran (auto) 0.05 H Absolute Neuts (auto) 12.4 H Absolute Nucleated RBC 0.000 Nucleated RBC % (auto) 0.0 Smear Tech's Comments VERIFIED Anion Gap 11 L Estim Creat Clear Calc 120.8 Estimated GFR > 60 Random Glucose 122 H Calcium 9.6 D Magnesium 1.8 Urine Color Urine Appearance Urine pH Ur Specific [place] Urine Protein Urine Glucose (UA) Urine Ketones Urine Blood Urine Nitrite Ur Leukocyte Esterase Urine RBC Urine WBC Ur Squamous Epith Cells Urine Bacteria COVID-19 (TIMOTHY) Negative COVID-19 Clin Com See Note 03/18/21 12:03 MCV MCH MCHC RDW Plt Count MPV Immature Gran % (Auto) Neut % (Auto) Lymph % (Auto) [place] % (Auto) Eos % (Auto) Baso % (Auto) Lymph # (Auto) [place] # (Auto) Eos # (Auto) Baso # (Auto) Abs Immat Gran (auto) Absolute Neuts (auto) Absolute Nucleated RBC Nucleated RBC % (auto) Smear Tech's Comments Anion Gap Estim Creat Clear Calc Estimated GFR Random Glucose Calcium Magnesium Urine Color YELLOW Urine Appearance CLEAR Urine pH 6.0 Ur Specific [place] 1.010 Urine Protein NEG Urine Glucose (UA) NEG Urine Ketones NEG Urine Blood TRACE Urine Nitrite NEG Ur Leukocyte Esterase NEG Urine RBC 0-2 Urine WBC 0 Ur Squamous Epith Cells 1+ Urine Bacteria NONE COVID-19 (TIMOTHY) COVID-19 Clin Com Imaging Radiologist's Impressions: Impressions Chest X-Ray 03/18/21 11:35 IMPRESSION: No acute parenchymal disease. Assessment and Plan (1) Asthma with acute exacerbation: Qualifiers: Asthma persistence: intermittent Asthma severity: mild Qualified Code(s): J45.21 - Mild intermittent asthma with (acute) exacerbation Status: Acute (2) Bronchitis: Status: Acute Assessment and plan: 1. Asthma exacerbation Admitted under observation Still mild tachycardia and tachypneic probably related to asthma but improving Patient breathing better now could able to speak better Continue nebs, steroids, azithromycin, Robitussin Added Zofran for coverage in case Needed for nausea Throat culture since she is saying throat pain Probable acute bronchitis: Continue azithromycin, follows throat cultures DVT prophylaxis with Lovenox Above management discussed with the patient in detail length she understand and in agreement with the above plan, time spent 70 minutes and 50% time spent on counseling. Quality Stroke Does the patient have a stroke diagnosis?: No VTE Prior VTE?: No VTE Risk Level:: Medical - moderate - high VTE Device Contraindication: N/A - Device Ordered VTE Drug Contraindication: N/A - Med Ordered
[2021-03-18 16:54] LABS: ABG Base Excess -3.8 mmol/L; ABG HCO3 18 mmol/L (22-26); ABG pCO2 25 mmHg (32-45); ABG pCO2 TC 25 mmHg (32-45); ABG pH 7.46 (7.35-7.45); ABG pH TC 7.46 (7.35-7.45); ABG pO2 152 mmHg (83-108); ABG pO2 TC 151 (83-108)
--- NOTE | 2021-03-18 17:45 | PC.NURSE ---
Addendum entered by Kwame Huff RN 03/18/21 21:37: Incorrect time: note done at 19:45 Original Note: pt alert and oriented x4. respirations even and unlabored at this time. pt sitting on edge of bed tapping foot. pt states she is feeling anxious and also c/o headache. hospitalist (Brandon) notified.
[2021-03-18 18:18] LABS: ABG Refer to POC result
[2021-03-18] MEDS: methylPREDNISolone Sod Succ 40 MG/ML VIAL IVPUSH (18:54)
--- NOTE | 2021-03-18 18:54 | PC.NURSE ---
LS remain course. work of breathing has improved compaired to arrival. skin pwd. spking full sentences. moderate air movement. pt reports feeling 'the same as she did when she arrived.
[2021-03-18] MEDS: Ketorolac Tromethamine 15 MG/ML VIAL IVPUSH (20:06)
[2021-03-18] MEDS: LORazepam 2 MG/ML VIAL 0.5 MG IVPUSH (20:09)
[2021-03-18] MEDS: guaiFENesin 100 MG/5 ML LIQUID PO (20:12)
[2021-03-18] MEDS: Albuterol/Iprat 2.5/0.5MG 3 ML AMPUL.NEB INHALE (20:20)
--- NOTE | 2021-03-18 22:21 | PC.NURSE ---
pt c/o continued migraine h/a as well as anxiety. states that medications given for headache and anxiety did not help. pt laying in semi-fowlers, respirations even and unlabored, pt observed talking on phone by this nurse. pt now stating she wants to leave hospital. states she would be doing just as well at home as she is here and also states she does not like the medication she is being given. hospitalist notified.
--- NOTE | 2021-03-18 22:53 | PM.EVENT ---
Event Note Date of Service: 03/18/21 Event Note: pt wants to leave AMA She feels anxious, feels that the IV steroids make her feel more sick she is not happy and wants to leave knowing the risk of hypoxia and complication associated with her asthma prednisone 50 mg daily for 5 days as well as nebulizer solutions sent to her pharmacy Pt will be leaving against medical advice
--- NOTE | 2021-03-18 22:56 | PC.NURSE ---
hospitalist at bedside speaking with pt regarding her request to leave AMA. pt aware of risks of leaving AMA and is adamantly refusing to stay. pt informed she can return to ED at anytime. pt alert and oriented x4. vital signs stable. IV removed. gait steady on exit. d/c with spouse.
[2021-03-19 09:00] LABS: Rhino/Enterovirus PCR Detected (Not Detect.)
== END 2021-03-18 23:00 | disposition left against medical advice (07) ==
LOC: HO.ED 15:45 → HO.EDOVER 16:17
PROVIDERS: Physician Assistant; Admitting Provider Internal Medicine; Emergency Provider Emergency Medicine; Visit Provider Internal Medicine
DX: J45.21 Mild intermittent asthma with (acute) exacerbation (principal); J40 Bronchitis, not specified as acute or chronic; J34.89 Other specified disorders of nose and nasal sinuses; Z20.822 Contact with and (suspected) exposure to COVID-19; Z88.6 Allergy status to analgesic agent; Z91.018 Allergy to other foods; Z79.52 Long term (current) use of systemic steroids; Z79.899 Other long term (current) drug therapy; Z53.29 Procedure and treatment not carried out because of patient's decision for other reasons
CPT/HCPCS: 36415; 36600; 71045; 80048; 81001; 82803; 83735; 85025; 87633; 87635; 94640; 94644; 96365; 96366; 96372; 96375; 96376; 99219; 99285; 99291; J1885; J2060; J2405; J2765; J2920; J2930; J3475

== ENCOUNTER 2021-06-10 12:08 | Outpatient (REF) | payer OTHER, SELFPAY ==
--- NOTE | ~2021-06-10 | XR_ITS ---
EXAMINATION: XR sacrum coccyx min 2V, XR lumbar spine 2-3V CLINICAL INFORMATION: Low back pain. Sacrococcygeal disorders. COMPARISON: None. TECHNIQUE: AP and lateral views of lumbosacral spine were obtained with a coned lateral view of the lumbosacral junction. Sacrum and coccyx 3 views. FINDINGS: Extensive hypertrophic bone has developed in the pars and lamina at L5 as well as the posterior elements at S1. The appearance is unusual for facet arthropathy with no degenerative disc disease evident. The intervening facet joint is unremarkable in appearance. Disc spaces are well-maintained. No other bony abnormality. Vertebral body heights are maintained. Degenerative changes are evident in the sacroiliac joints with subchondral sclerosis. Sacrum and coccyx: The sacrum and coccyx are unremarkable. No additional abnormality. XR/XR lumbar spine 2-3V IMPRESSION: Unusual hypertrophic bone in the posterior elements at L5 and S1 of undetermined etiology. Further evaluation with CT is suggested. 2. Mild degenerative changes in the sacroiliac joints.
--- NOTE | ~2021-06-10 | XR_ITS ---
EXAMINATION: XR sacrum coccyx min 2V, XR lumbar spine 2-3V CLINICAL INFORMATION: Low back pain. Sacrococcygeal disorders. COMPARISON: None. TECHNIQUE: AP and lateral views of lumbosacral spine were obtained with a coned lateral view of the lumbosacral junction. Sacrum and coccyx 3 views. FINDINGS: Extensive hypertrophic bone has developed in the pars and lamina at L5 as well as the posterior elements at S1. The appearance is unusual for facet arthropathy with no degenerative disc disease evident. The intervening facet joint is unremarkable in appearance. Disc spaces are well-maintained. No other bony abnormality. Vertebral body heights are maintained. Degenerative changes are evident in the sacroiliac joints with subchondral sclerosis. Sacrum and coccyx: The sacrum and coccyx are unremarkable. No additional abnormality. XR/XR sacrum coccyx min 2V IMPRESSION: Unusual hypertrophic bone in the posterior elements at L5 and S1 of undetermined etiology. Further evaluation with CT is suggested. 2. Mild degenerative changes in the sacroiliac joints.
== END 2021-06-10 12:09 | disposition home or self-care (01) ==
LOC: HO.HMGCX 12:08
PROVIDERS: PCP Nurse Practitioner Family; Visit Provider Nurse Practitioner Family
DX: M53.3 Sacrococcygeal disorders, not elsewhere classified (principal); M54.50 Low back pain, unspecified
CPT/HCPCS: 72100; 72220

== ENCOUNTER 2021-09-20 17:45 | Outpatient (REF) | payer SELFPAY ==
--- NOTE | ~2021-09-20 | MR_ITS ---
EXAMINATION: MR LUMBAR SPINE WITHOUT CONTRAST CLINICAL INFORMATION: Lumbar radiculopathy. COMPARISON: Lumbar spine radiographs from 06/10/2021. Chest radiograph from 03/17/2021. TECHNIQUE: MRI of the lumbar spine was obtained using routine sequences without contrast. FINDINGS: Transitional vertebral anatomy. There are diminutive riblets associated with the T12 vertebral segment. There is sacralization of L5 with fusion of the L5 transverse processes with the sacral alae. Rudimentary L5-S1 intervertebral disc. Mild degenerative grade 1 anterolisthesis of L4 on L5. Otherwise, normal anatomic alignment. Moderate degenerative disc disease at L4-L5. Mild degenerative disc disease at T9-T10 and T12-L1. Associated mild mixed Modic type discogenic endplate changes including minimal Modic type I discogenic edema at L4-L5. Moderate marrow edema within the L4-L5 posterior elements. No additional suspicious marrow edema. The vertebral body heights are largely maintained. The conus medullaris terminates at the level of T12-L1. The distal spinal cord is normal in appearance. Moderate subcutaneous edema within the soft tissues of the back from L1-L4. No additional significant abnormalities of the paraspinal musculature. The uterus is only partially visualized on this exam but appears retroverted. Otherwise, limited evaluation of the intra-abdominal structures without significant abnormalities. The abdominal aorta is of normal contour and caliber. AXIAL SPINAL LEVELS: T12-L1: Normal annular contour. There is moderate bilateral facet joint arthropathy. There is no neural foraminal stenosis. There is no spinal canal stenosis. L1-L2: Shallow diffuse disc bulge. There is moderate bilateral facet joint arthropathy. There is mild bilateral neural foraminal stenosis. There is no spinal canal stenosis. L2-L3: Normal annular contour. There is mild to moderate bilateral facet joint arthropathy. There is no neural foraminal stenosis. There is no spinal canal stenosis. L3-L4: Mild diffuse disc bulge. There is moderate left and mild right facet joint arthropathy. There is mild bilateral neural foraminal stenosis. There is no spinal canal stenosis. L4-L5: Moderate diffuse disc bulge exacerbated by uncovering from anterolisthesis. There is severe right and moderate left facet joint arthropathy. There is mild bilateral neural foraminal stenosis. There is narrowing of the right subarticular zone with no overt spinal canal stenosis centrally. L5-S1: Rudimentary intervertebral disc. There is mild bilateral facet joint arthropathy. There is no neural foraminal stenosis. There is no spinal canal stenosis. MR/MR lumbar spine wo con IMPRESSION: Transitional vertebral anatomy. There is sacralization of L5. Mild to moderate multilevel degenerative spondyloarthropathy of the lumbar spine as described in detail above. Most notably, there is moderate to advanced facet joint arthropathy at L4-L5 with associated marrow edema within the posterior elements at these levels. No demonstrated overt displaced fracture; however, if clinically indicated CT would provide better evaluation for osseous integrity. There are mild neural foraminal stenoses at L1-L2, L3-L4, and L4-L5. No spinal canal stenosis.
== END 2021-09-20 17:46 | disposition home or self-care (01) ==
LOC: HO.MRI 17:45
PROVIDERS: Visit Provider Nurse Practitioner Family
DX: M54.16 Radiculopathy, lumbar region (principal)
CPT/HCPCS: 72148

== ENCOUNTER → 2021-11-24 08:06 | Outpatient (REF) | payer OTHER, SELFPAY ==
--- NOTE | 2021-11-24 08:21 | CA_ITS ---
Transthoracic Echocardiogram Patient (Last, First, Middle): Mikaela Sanchez, Gender: Female Date of : 1980 Age: 40 Procedure Date: 11/24/2021 Procedure Type: Transthoracic Echocardiogram Location: OP Height: 165.1 cm Weight: 102.06 kg BSA: 2.08 m2 Heart Rate: bpm BP: 118 / 72 mmHg Yacht Builder: RON Referring MD: Nic Rodrigez [facility] Inspector [employer] Reconditioning: Jose Orr MD Symptoms: R01.1 - Cardiac murmur, unspecified Study Quality: Fair/Contrast ECG Rhythm: Sinus Conclusions: - Essentially normal study Findings Procedure Information Contrast agent, definity, is being given per protocol without apparent complications. Left Ventricle Normal left ventricular size, thickness, and systolic function. The visually estimated ejection fraction is between 60-65%. Spectral Doppler is indicative of a normal filling pattern. Right Ventricle Normal right ventricular cavity size and systolic function. Atria The left atrium is normal in size. Interatrial shunt cannot be excluded. Aortic Valve The aortic valve structure and function is likely normal. There is no aortic valve stenosis. There is no aortic valve regurgitation. Mitral Valve Normal mitral valve structure and function. There is no mitral valve regurgitation. There is no mitral valve stenosis. Pulmonic Valve The pulmonic valve is likely normal. There is mild pulmonic valve regurgitation. Tricuspid Valve Likely normal tricuspid valve structure and function. Tricuspid regurgitation envelope is inadequate for calculation of right ventricular systolic pressure. Normal right atrial pressure. Great Vessels All visible segments of the aorta are normal in size. The pulmonary artery was not well visualized. Venous The inferior vena cava is normal in size and collapses greater than 50% with inspiration. Pericardium/Pleural There is no evidence of pericardial effusion. Prior Study Comparison No prior study available for comparison. Measurements 2D Linear Measurements IVSd: 0.89 0.6-0.9/0.6-1.0 cm LVIDd: 5.06 3.9-5.3/4.2-5.9 cm LVIDd Index: 2.43 2.4-3.2/2.2-3.1 cm/m2 LVIDs: 3.56 2.0-3.6 cm LVPWd: 0.82 0.7-1.1 cm LA Diam: 4.10 2.7-3.8/3.0-4.0 cm LAIDs Index: 1.97 1.5-2.3 cm/m2 LV Mass: 187.82 67-162/88-224 g LV Mass Index: 90.30 43-95/49-115 g/m2 LVOT Diam: 2.00 3.0+(-)1.3 cm 2D Systolic Function EF 4C: 63.50 >55% EF 2C: 58.90 >55% EF BiP: 60.00 >55% Mitral Valve MV Pk E: 0.81 MV PK A: 0.55 MV Decel Time: 155.00 E/A: 1.50 E'Lateral: 11.20 E'Medial: 8.38 E/E' Med: 9.70 E/E' Lat: 7.30 PHT: 45.00 MVA PHT: 4.89 Decel Addison: 5.25 Aortic Valve AoV Pk Sav: 1.29 AoV Mn Sav: 0.95 AoV VTI: 0.29 AoV Pk Grad: 7.00 Aov Mn Grad: 4.00 RAMSES Cont.VTI: 2.24 LVOT LVOT Pk Sav: 0.92 LVOT Mn Sav: 0.62 LVOT VTI: 0.20 LVOT Pk Grad: 3.00 LVOT Mn Grad: 2.00 LVOT Diam: 2.00 LVOT Area: 3.14 Diastolic Function MV Pk E: 0.81 MV Pk A: 0.55 E/A: 1.50 E'Medial: 8.38 E/E' Med: 9.70 E' Laterial: 11.20 E/E' Lat: 7.30 Right Ventricle TAPSE (mm): 22.60 TVS' Sav: 11.90 Tricuspid Valve RA Press: 3.00 Great Vessels Aorta Sinus of Valsalva: 3.19 2.0-3.[address] Ridge: 2.80 1.7-3.4 cm Ao Asc: 2.50 2.1-3.4 cm Pulmonary Veins Pulm Vein S/D 1.30 Pulmonary Valve PV Pk Sav: 0.96 Peak PV Grad: 4.00 Updated in Other Vendor System with Status of Final Jose Orr MD electronically signed on 11/25/2021 3:28:08 PM with status of Final
[2021-11-24 10:16] LABS: Appearance Urine CLOUDY; Color Urine YELLOW; Glucose Urine UA NEG (NEG); Leukocyte Esterase Urine NEG (NEG); Nitrite Urine NEG (NEG); PH 5.5 (5.0-8.0); Specific Gravity - Urine >= 1.030 (1.005-1.025); Urine Blood NEG (NEG); Urine Ketones NEG (NEG); Urine Protein NEG (NEG-TRACE)
[2021-11-24 10:34] LABS: Alanine Aminotransferase 23 U/L (0-31); Albumin Level 3.9 g/dL (3.5-5.0); Alkaline Phosphatase 63 U/L (39-117); Anion Gap 12 (12-20); Aspartate Amino Transferase 22 U/L (5-31); Bilirubin Total 0.3 mg/dL (0.0-1.0); Blood Urea Nitrogen 10 mg/dL (9-16); Calcium 9.1 mg/dL (8.4-10.2); Carbon Dioxide 23 mmol/L (22-29); Chloride 106 mmol/L (96-108); Cholesterol 187 mg/dL; Estimated Glomerular Filt Rate > 60; Glucose Fasting 81 mg/dL (60-99); HDL Cholesterol 61 mg/dL; LDL Cholesterol Calculated 114 mg/dl; Potassium 4.3 mmol/L (3.3-5.1); Sodium 137 mmol/L (135-145); Total Protein 6.5 g/dL (6.5-8.0); Triglycerides 60 mg/dL
== END ==
LOC: HO.CARD 08:06
PROVIDERS: PCP Nurse Practitioner Family; Visit Provider Nurse Practitioner Family
DX: R01.1 Cardiac murmur, unspecified (principal); R03.0 Elevated blood-pressure reading, without diagnosis of hypertension
CPT/HCPCS: 36415; 80053; 80061; 81003; 84443; 93306; Q9957

== ENCOUNTER 2021-12-12 09:51 | Outpatient (REF) | payer OTHER, SELFPAY ==
[2021-12-12 10:33] LABS: Binax Internal Control QC Valid; Binax Now Covid-19 Ag Negative (Negative)
== END 2021-12-12 09:52 | disposition home or self-care (01) ==
LOC: HO.HMGCLDS 09:51
PROVIDERS: Visit Provider Internal Medicine
DX: Z20.822 Contact with and (suspected) exposure to COVID-19 (principal); J06.9 Acute upper respiratory infection, unspecified
CPT/HCPCS: 87811; C9803

== ENCOUNTER 2022-01-30 08:26 | Emergency (ER) | payer OTHER, SELFPAY ==
--- NOTE | ~2022-01-30 | XR_ITS ---
EXAMINATION: XR CHEST CLINICAL INFORMATION: Asthma, wheezing, shortness of breath. COMPARISON: 03/18/2021 chest radiograph. TECHNIQUE: 2 views of the chest were obtained. FINDINGS: No significant abnormality is noted involving the heart, lungs, mediastinum, bony thorax or soft tissues. XR/XR chest 2V IMPRESSION: No acute cardiopulmonary process.
[2022-01-30 09:10] VITALS: BP 122/54; PULSE 85; RESP 18; TEMP 36.9; O2SAT 98; BMI 35.5
[2022-01-30 09:53] LABS: COVID-19 Test Negative (Negative); IDNOW Serial# 9DB6401D
[2022-01-30 19:50] VITALS: PULSE 85; RESP 16; O2SAT 98
[2022-01-30] MEDS: Albuterol/Iprat 2.5/0.5MG 3 ML AMPUL.NEB INHALE ×2 (19:50→20:53)
--- NOTE | 2022-01-30 20:26 | ED.ASTHMA ---
HPI - Asthma General Chief Complaint: Asthma Stated Complaint: Asthma Time Seen by Provider: 01/30/22 20:24 Source: patient Mode of arrival: ambulatory Limitations: no limitations History of Present Illness HPI Narrative: Patient presents emergency department for evaluation of asthma exacerbation. She states that she has been having worsening of her symptoms over the past 3 days shortness of breath, cough, heaviness to her chest. She has been using her inhalers at home, in addition to nebulizers without significant improvement. Denies fevers, chills, known sick contacts, COVID-19 exposure, sore throat, nausea, vomiting, abdominal pain. Related Data Previous Rx's Medication Instructions Recorded albuterol sulfate 2.5 mg/3 mL 2.5 mg (3 mL) inhalation Q4-6H PRN 03/17/21 (0.083 %) solution for nebulization bronchospasm #75 mL ipratropium 0.5 mg-albuterol 3 mg 3 ml inhalation Q6-8H PRN 03/18/21 (2.5 mg base)/3 mL nebulization shortness of breath or wheezing soln #90 mL albuterol sulfate 90 mcg/actuation 2 puff inhalation Q6H PRN 05/25/21 aerosol inhaler bronchospasm 30 days #8.5 grams fluticasone propionate 45 2 puff inhalation BID 30 days #12 05/25/21 mcg-salmeterol 21 mcg/actuation grams HFA inhaler (Advair HFA) hydrocortisone acetate 25 mg 25 mg [place] BEDTIME PRN hemorrhoids 05/25/21 rectal suppository (Anusol-HC) 30 days #12 ea tizanidine 2 mg tablet 2 mg PO BEDTIME PRN muscle 09/28/21 spasticity 20 days #20 tabs trazodone 50 mg tablet 50 mg PO DAILY insomnia 30 days 09/28/21 #30 tabs meloxicam 15 mg tablet 15 mg PO DAILY PRN back pain 30 10/25/21 days #30 tabs azithromycin 250 mg tablet See Rx Instructions PO .COMPLEX #6 12/12/21 tabs prednisone 20 mg tablet 60 mg PO DAILY #9 tabs 12/12/21 albuterol sulfate 2.5 mg/3 mL 2.5 mg (3 mL) inhalation Q4-6H PRN 01/30/22 (0.083 %) solution for nebulization shortness of breath or wheezing #75 mL azithromycin 250 mg tablet See Rx Instructions PO .COMPLEX #6 01/30/22 tabs prednisone 20 mg tablet 60 mg PO DAILY 4 days #12 tabs 01/30/22 Allergies Allergy/AdvReac Type Severity Reaction Status Date / Time apple [APPLE] Allergy Mild ITCHYNESS. Verified 01/30/22 09:12 SWELLING TO LIP AND GUMS roth Allergy Mild ITCHYNESS. Verified 01/30/22 09:12 SWELLING TO LIP AND GUMS kiwi [KIWI] Allergy Mild ITCHNESS. Verified 01/30/22 09:12 GUM AND LIP SWELLING peach [PEACH] Allergy Mild ITCHYNESS. Verified 01/30/22 09:12 SWELLING TO LIP AND GUMS oxycodone [OXYCODONE] Allergy Unknown ITCHING Verified 01/30/22 09:12 pear [PEAR] Allergy Unknown ITCHING Verified 01/30/22 09:12 seasonal Allergy Unknown Cough Verified 01/30/22 09:12 Review of Systems Review of Systems: Constitutional : No Fever, No Chills ENT/Mouth : No Hoarseness, No sore throat, No Rhinorrhea Eyes: No Redness, No Discharge, No Vision Changes Cardiovascular : No Chest Pain, positive SOB, positive Dyspnea on Exertion, No Edema Respiratory : positive Cough, No Sputum, positive Wheezing, Gastrointestinal : No Nausea, No Vomiting, No Diarrhea, No abdominal Pain Genitourinary : No Dysuria, No Hematuria Musculoskeletal : No joint pain, No Myalgias Skin : No rash Neuro : No Weakness, No Numbness, No Headache Psych : No anxiety, depression Heme/Lymph: No Bruising, No Bleeding Endocrine : No Polyuria, No Polydipsia Yes all other systems are reviewed and are negative PMFSH Past Medical History Attestation statement: The following information was validated with the patient. Source: old records reviewed Medical History Asthma Surgical History History of tonsillectomy Social History Social History Housing: House Alcohol intake: never Patient Tobacco Use Status: Never used Tobacco e-Cigarette/Vaping Use: Never Used Second Hand Smoke Exposure: Yes (work ) Advance Directives: No Advance Directives Information Provided: No service: No Current occupational status: employed Current occupation: [employer] Current occupational exposures/hazards: Yes Physical Exam Vital Signs: Vital Signs: Last Vital Signs Temp 98.6 F 01/30/22 22:25 Pulse 86 01/30/22 22:25 Resp 18 01/30/22 22:25 BP 122/84 01/30/22 22:25 Pulse Ox 100 01/30/22 22:25 O2 Del Method 01/30/22 22:25 BMI result Body Mass Index 35.5 Vital signs have been reviewed as normal and appeared to be correct. Blood pressure normal.? Heart rate normal.? Respiration rate normal. Temperature normal.? Oxygen saturation normal. Appearance: Alert.?Oriented to person, place and time. No acute distress.?Normal affect. Eyes: Pupils equal, round and reactive to light.? ENT: Pharynx normal.?? Neck: Normal inspection.? Neck supple.?? CVS: Heart sounds normal. Normal heart rate and rhythm.? Pulses normal.?? Respiratory: No respiratory distress.? Lung sounds wheezing throughout bilaterally Abdomen: Soft and non-tender. Normoactive bowel sounds. Skin: Skin warm and dry.? Normal skin color.? ?? Extremities: No lower extremity edema.? No calf ttp? Neuro: Moves all extremities spontaneously. Sensation intact bilaterally. No motor deficits. Ambulates with normal steady gait. Course Course Course Narrative: Patient is a 41-year-old female with a past medical history of asthma who presents emergency department for evaluation of exacerbation over the past 3 days. 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 No known sick contacts. At rest she is well-appearing, no increased work of breathing, no tachypnea or hypoxia. Received DuoNeb updraft prior to assessment, still with diffuse wheezing bilaterally. Patient to receive additional albuterol nebulizer in addition to prednisone orally. Chest x-ray with no acute cardiopulmonary process. COVID-19 testing is negative. Reevaluation(s) Reevaluation #1: Lung sounds with decreased wheezing, moving more air at this time. Reports feeling much better after receiving updraft treatment. Discussed plan of care with patient, she would like to be discharged home, no hypoxia at room air or with exertion. Patient be discharged home with albuterol, prednisone, azithromycin, discussed worrisome signs and symptoms to return back to the emergency department for, advised outpatient follow-up with her primary care provider within 5 days. All questions were answered, she was discharged home in stable condition, ambulatory with steady gait out of the emergency department Time: 22:18 [facility] - Asthma Medical Records Attestation: I reviewed the patient's medical records. Lab Data Attestation: I reviewed the patient's lab results. Labs: Lab Results 01/30/22 Range/Units 09:16 COVID-19 (TIMOTHY) Negative (Negative) COVID-19 Clin Com See Note Imaging Data Chest x-ray: Radiologist's impression: FINDINGS: No significant abnormality is noted involving the heart, lungs, mediastinum, bony thorax or soft tissues. XR/XR chest 2V IMPRESSION: No acute cardiopulmonary process. Discharge Plan Discharge Clinical Impression: Asthma with acute exacerbation Patient Disposition: Home, Self-Care Instructions: Asthma (ED) Additional Instructions: Return to the emergency department any new or worsening symptoms or concerns. Follow-up with your primary care provider as needed. COVID-19 testing was negative and chest x-ray was normal Prescriptions: New albuterol sulfate 2.5 mg /3 mL (0.083 %) solution for nebulization 2.5 mg inhalation Q4-6H PRN (Reason: shortness of breath or wheezing) Qty: 75 0RF prednisone 20 mg tablet 60 mg PO DAILY 4 Days Qty: 12 0RF azithromycin 250 mg tablet See Rx Instructions .ROUTE .COMPLEX Qty: 6 0RF Rx Instructions: For 250 mg dose pack: take 500 mg today (day 1), then 250 mg for 4 days (days 2-5) No Action trazodone 50 mg tablet 50 mg PO DAILY 30 Days Qty: 30 2RF tizanidine 2 mg tablet 2 mg PO BEDTIME PRN (Reason: muscle spasticity) 20 Days Qty: 20 0RF meloxicam 15 mg tablet 15 mg PO DAILY PRN (Reason: back pain) 30 Days Qty: 30 2RF albuterol sulfate 2.5 mg /3 mL (0.083 %) solution for nebulization 2.5 mg inhalation Q4-6H PRN (Reason: bronchospasm) Qty: 75 0RF ipratropium-albuterol 0.5 mg-3 mg(2.5 mg base)/3 mL solution for nebulization 3 ml inhalation Q6-8H PRN (Reason: shortness of breath or wheezing) Qty: 90 0RF hydrocortisone acetate [Anusol-HC] 25 mg suppository 25 mg [place] BEDTIME PRN (Reason: hemorrhoids) 30 Days Qty: 12 0RF albuterol sulfate 90 mcg/actuation HFA aerosol inhaler 2 puff inhalation Q6H PRN (Reason: bronchospasm) 30 Days Qty: 8.5 2RF Advair HFA 45-21 mcg/actuation HFA aerosol inhaler 2 puff inhalation BID 30 Days Qty: 12 0RF azithromycin 250 mg tablet See Rx Instructions PO .COMPLEX Qty: 6 0RF Rx Instructions: take 500 mg today (day 1), then 250 mg for 4 days (days 2-5) PO prednisone 20 mg tablet 60 mg PO DAILY Qty: 9 0RF Stand Alone Forms: Work/School Release Interventions: ED Discharge Assessment Last Done: 01/30/22 22:42 Discharge Date/Time: 01/30/22 22:44
[2022-01-30] MEDS: Albuterol Sulfate (0.083%) 2.5 MG/3 ML VIAL.NEB 7.5 MG INHALE (20:53)
[2022-01-30 20:54] VITALS: PULSE 88; RESP 18; O2SAT 96
[2022-01-30] MEDS: predniSONE 20 MG TABLET 60 MG PO (21:07)
[2022-01-30 22:25] VITALS: BP 122/84; PULSE 86; RESP 18; TEMP 37; O2SAT 100
== END 2022-01-30 22:44 | disposition home or self-care (01) ==
PROVIDERS: Emergency Provider Emergency Medicine; PCP Nurse Practitioner Family
DX: J45.901 Unspecified asthma with (acute) exacerbation (principal); Z20.822 Contact with and (suspected) exposure to COVID-19
CPT/HCPCS: 71046; 87635; 94640; 99283; 99285

== ENCOUNTER 2022-08-25 12:04 | Outpatient (REF) | payer OTHER, SELFPAY ==
--- NOTE | ~2022-08-25 | XR_ITS ---
EXAMINATION: XR PELVIS CLINICAL INFORMATION: Right hip pain. COMPARISON: None TECHNIQUE: AP view of the pelvis. FINDINGS: Mild bilateral hip and sacroiliac degenerative joint changes are seen. There is no acute fracture or dislocation. The soft tissues are unremarkable. XR/XR pelvis 1-2V IMPRESSION: Mild bilateral hip and sacroiliac degenerative joint changes suggesting osteoarthritis.
== END 2022-08-25 12:05 | disposition home or self-care (01) ==
LOC: HO.HMGCX 12:04
PROVIDERS: Visit Provider Physician Assistant
DX: M25.551 Pain in right hip (principal)
CPT/HCPCS: 72170

== ENCOUNTER 2022-10-03 08:33 | Emergency (ER) | payer OTHER, SELFPAY ==
--- NOTE | ~2022-10-03 | XR_ITS ---
EXAMINATION: XR ANKLE, LEFT CLINICAL INFORMATION: Pain COMPARISON: None available. TECHNIQUE: AP, lateral, and mortise views of the left ankle. FINDINGS: Bone alignment is normal. No fracture or dislocation. Normal ankle mortise. Small osteophyte at the Achilles tendon insertion to the calcaneus. XR/XR ankle LT min 3V IMPRESSION: Small osteophyte at the Achilles tendon insertion to the calcaneus
[2022-10-03 08:45] VITALS: BP 122/49; PULSE 84; RESP 20; TEMP 36.8; O2SAT 97; BMI 38.7
--- NOTE | 2022-10-03 10:24 | ED.LOWEXIN ---
HPI - Extremity Injury (Lower) General Chief Complaint: Extremity Injury, Lower Stated Complaint: L ankle inj Time Seen by Provider: 10/03/22 09:07 History of Present Illness HPI Narrative: Patient complains of left ankle pain and swelling since twisting it when she tripped on a crack in the sidewalk yesterday, she did not fall, no other injury no other complaint no head injury no headache no neck pain no back pain no other extremity pains no numbness no weakness no tingling Related Data Previous Rx's Medication Instructions Recorded albuterol sulfate 2.5 mg/3 mL 2.5 mg (3 mL) inhalation Q4-6H PRN 03/17/21 (0.083 %) solution for nebulization bronchospasm #75 mL ipratropium 0.5 mg-albuterol 3 mg 3 ml inhalation Q6-8H PRN 03/18/21 (2.5 mg base)/3 mL nebulization shortness of breath or wheezing soln #90 mL albuterol sulfate 90 mcg/actuation 2 puff inhalation Q6H PRN 05/25/21 aerosol inhaler bronchospasm 30 days #8.5 grams fluticasone propionate 45 2 puff inhalation BID 30 days #12 05/25/21 mcg-salmeterol 21 mcg/actuation grams HFA inhaler (Advair HFA) hydrocortisone acetate 25 mg 25 mg [place] BEDTIME PRN hemorrhoids 05/25/21 rectal suppository (Anusol-HC) 30 days #12 ea tizanidine 2 mg tablet 2 mg PO BEDTIME PRN muscle 09/28/21 spasticity 20 days #20 tabs meloxicam 15 mg tablet 15 mg PO DAILY PRN back pain 30 10/25/21 days #30 tabs azithromycin 250 mg tablet See Rx Instructions PO .COMPLEX #6 12/12/21 tabs azithromycin 250 mg tablet See Rx Instructions PO .COMPLEX #6 01/30/22 tabs prednisone 20 mg tablet 60 mg PO DAILY 4 days #12 tabs 01/30/22 albuterol sulfate 2.5 mg/3 mL 2.5 mg (3 mL) inhalation Q4-6H PRN 02/01/22 (0.083 %) solution for nebulization shortness of breath or wheezing #75 mL prednisone 20 mg tablet 60 mg PO DAILY 5 days #15 tabs 02/01/22 prednisone 50 mg tablet 50 mg PO DAILY 6 days #6 tabs 06/04/22 ciprofloxacin 0.3 %-dexamethasone 4 drp otic (ears) BID 7 days #7.5 06/06/22 0.1 % ear drops,suspension mL (Ciprodex) prednisone 20 mg tablet 40 mg PO DAILY 5 days #10 tabs 06/06/22 trazodone 50 mg tablet 50 mg PO DAILY insomnia 30 days 08/15/22 #30 tabs cyclobenzaprine 10 mg tablet 10 mg PO BEDTIME PRN muscle spasm 08/25/22 #14 tabs diclofenac sodium 1 % topical gel 2 g topical QID #100 grams 08/25/22 (Voltaren Arthritis Pain) ibuprofen 600 mg tablet 600 mg PO Q6H PRN pain #20 tabs 10/03/22 Allergies Allergy/AdvReac Type Severity Reaction Status Date / Time apple [APPLE] Allergy Mild ITCHYNESS. Verified 08/25/22 11:53 SWELLING TO LIP AND GUMS roth Allergy Mild ITCHYNESS. Verified 08/25/22 11:53 SWELLING TO LIP AND GUMS kiwi [KIWI] Allergy Mild ITCHNESS. Verified 08/25/22 11:53 GUM AND LIP SWELLING peach [PEACH] Allergy Mild ITCHYNESS. Verified 08/25/22 11:53 SWELLING TO LIP AND GUMS oxycodone [OXYCODONE] Allergy Unknown ITCHING Verified 08/25/22 11:53 pear [PEAR] Allergy Unknown ITCHING Verified 08/25/22 11:53 Seasonal Allergies Allergy Unknown Cough Verified 08/25/22 11:53 [facility] Past Medical History Source: nursing notes reviewed Medical History Asthma Surgical History History of tonsillectomy Social History Social History Housing: House Alcohol intake: never Patient Tobacco Use Status: Never used Tobacco e-Cigarette/Vaping Use: Never Used Second Hand Smoke Exposure: Yes (work ) Advance Directives: No Advance Directives Information Provided: Yes service: No Current occupational status: employed Current occupation: [employer] Current occupational exposures/hazards: Yes Physical Exam Vital Signs: Vital Signs: Last Vital Signs Temp 98.3 F 10/03/22 08:45 Pulse 84 10/03/22 08:45 Resp 20 10/03/22 08:45 BP 122/49 L 10/03/22 08:45 Pulse Ox 97 10/03/22 08:45 O2 Del Method Room Air 10/03/22 08:45 BMI result Body Mass Index 38.7 General appearance no distress Head is normocephalic atraumatic Neck is supple nontender Respiratory no distress The back full range of motion Extremities full range of motion x4 including left ankle Left ankle exam there is tenderness on the posterior aspect of the lateral malleolus, the Achilles tendon appears to be intact, times in test is normal, there is no other tenderness in the foot or the knee Patient can bear weight but it is uncomfortable Other extremities normal Neuro no focal motor sensory deficits Course Course Course Narrative: X-ray of the left foot and ankle showed no acute or bony injury, it did show an osteophyte on the Achilles tendon insertion to the calcaneus Patient is given crutches and Aircast and will follow with orthopedics as needed Discharge Plan Discharge Clinical Impression: Left ankle sprain Patient Disposition: Home, Self-Care Additional Instructions: X-ray did not show any broken bone If not improving next week follow with orthopedist, ankle sprain can take from a few days to a few weeks to get better but most people should be limping comfortably after a few days Return any time any worse condition or any concerns Prescriptions: New ibuprofen 600 mg tablet 600 mg PO Q6H PRN (Reason: pain) Qty: 20 0RF No Action tizanidine 2 mg tablet 2 mg PO BEDTIME PRN (Reason: muscle spasticity) 20 Days Qty: 20 0RF meloxicam 15 mg tablet 15 mg PO DAILY PRN (Reason: back pain) 30 Days Qty: 30 2RF albuterol sulfate 2.5 mg /3 mL (0.083 %) solution for nebulization 2.5 mg inhalation Q4-6H PRN (Reason: shortness of breath or wheezing) Qty: 75 0RF prednisone 20 mg tablet 60 mg PO DAILY 5 Days Qty: 15 0RF prednisone 50 mg tablet 50 mg PO DAILY 6 Days Qty: 6 0RF trazodone 50 mg tablet 50 mg PO DAILY 30 Days Qty: 30 2RF albuterol sulfate 2.5 mg /3 mL (0.083 %) solution for nebulization 2.5 mg inhalation Q4-6H PRN (Reason: bronchospasm) Qty: 75 0RF ipratropium-albuterol 0.5 mg-3 mg(2.5 mg base)/3 mL solution for nebulization 3 ml inhalation Q6-8H PRN (Reason: shortness of breath or wheezing) Qty: 90 0RF prednisone 20 mg tablet 60 mg PO DAILY 4 Days Qty: 12 0RF azithromycin 250 mg tablet See Rx Instructions .ROUTE .COMPLEX Qty: 6 0RF Rx Instructions: For 250 mg dose pack: take 500 mg today (day 1), then 250 mg for 4 days (days 2-5) hydrocortisone acetate [Anusol-HC] 25 mg suppository 25 mg CO BEDTIME PRN (Reason: hemorrhoids) 30 Days Qty: 12 0RF albuterol sulfate 90 mcg/actuation HFA aerosol inhaler 2 puff inhalation Q6H PRN (Reason: bronchospasm) 30 Days Qty: 8.5 2RF Advair HFA 45-21 mcg/actuation HFA aerosol inhaler 2 puff inhalation BID 30 Days Qty: 12 0RF azithromycin 250 mg tablet See Rx Instructions PO .COMPLEX Qty: 6 0RF Rx Instructions: take 500 mg today (day 1), then 250 mg for 4 days (days 2-5) PO ciprofloxacin-dexamethasone [Ciprodex] 0.3-0.1 % drops,suspension 4 drp otic (ears) BID 7 Days Qty: 7.5 0RF prednisone 20 mg tablet 40 mg PO DAILY 5 Days Qty: 10 0RF diclofenac sodium [Voltaren Arthritis Pain] 1 % gel 2 g topical QID Qty: 100 2RF Rx Instructions: apply to single elbow, wrist or hand; for hand includes palm/fingers/back of hand cyclobenzaprine 10 mg tablet 10 mg PO BEDTIME PRN (Reason: muscle spasm) Qty: 14 0RF Referrals: Steve Andino MD [Physician] - (Left ankle sprain) Stand Alone Forms: Work/School Release
== END 2022-10-03 10:31 | disposition home or self-care (01) ==
PROVIDERS: Emergency Provider Emergency Medicine; PCP Nurse Practitioner Family
DX: M25.572 Pain in left ankle and joints of left foot (principal); Z79.899 Other long term (current) drug therapy
CPT/HCPCS: 73610; 99282; 99283

== ENCOUNTER → 2022-10-16 13:15 | Outpatient (BNVA) | payer OTHER, SELFPAY | PROVIDERS: PCP Nurse Practitioner Family; Visit Provider Physician Assistant | DX: Z13.89 Encounter for screening for other disorder (principal) ==

== ENCOUNTER → 2022-11-17 11:40 | Outpatient (BNVA) | payer OTHER, SELFPAY | PROVIDERS: PCP Nurse Practitioner Family; Visit Provider Physician Assistant ==

== ENCOUNTER 2023-03-01 14:04 | Outpatient (AMB) | payer OTHER, SELFPAY ==
[2023-03-01 14:15] VITALS: BP 120/68; PULSE 91; O2SAT 98; BMI 38.7
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
== END 2023-03-01 16:26 | disposition home or self-care (01) ==
PROVIDERS: PCP Nurse Practitioner Family; Visit Provider Nurse Practitioner Family
DX: K76.9 Liver disease, unspecified (principal); S32.009A Unspecified fracture of unspecified lumbar vertebra, initial encounter for closed fracture; S72.002A Fracture of unspecified part of neck of left femur, initial encounter for closed fracture; S62.101A Fracture of unspecified carpal bone, right wrist, initial encounter for closed fracture; E34.8 Other specified endocrine disorders; R32 Unspecified urinary incontinence; J93.9 Pneumothorax, unspecified; D25.1 Intramural leiomyoma of uterus
CPT/HCPCS: 99214

== ENCOUNTER 2023-04-24 11:22 | Outpatient (AMB) | payer OTHER, SELFPAY ==
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
[2023-04-24 11:34] VITALS: BP 104/78; PULSE 98; O2SAT 98; BMI 38.1
== END 2023-04-24 15:43 | disposition home or self-care (01) ==
PROVIDERS: PCP Nurse Practitioner Family; Visit Provider Nurse Practitioner Family
DX: M79.641 Pain in right hand (principal); M25.531 Pain in right wrist; M54.16 Radiculopathy, lumbar region; R32 Unspecified urinary incontinence; V89.2XXA Person injured in unspecified motor-vehicle accident, traffic, initial encounter
CPT/HCPCS: 99213

== ENCOUNTER 2023-06-14 10:15 | Outpatient (AMB) | payer OTHER, SELFPAY ==
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
[2023-06-14 10:24] VITALS: BP 118/70; PULSE 83; O2SAT 98; BMI 38.9
== END 2023-06-14 12:36 | disposition home or self-care (01) ==
PROVIDERS: PCP Nurse Practitioner Family; Visit Provider Nurse Practitioner Family
DX: S72.002A Fracture of unspecified part of neck of left femur, initial encounter for closed fracture (principal); S32.009A Unspecified fracture of unspecified lumbar vertebra, initial encounter for closed fracture; V89.2XXA Person injured in unspecified motor-vehicle accident, traffic, initial encounter; J93.9 Pneumothorax, unspecified; M25.462 Effusion, left knee
CPT/HCPCS: 99213

== ENCOUNTER 2023-11-20 10:25 | Outpatient (AMB) | payer OTHER, SELFPAY ==
[2023-11-20 11:24] VITALS: BP 122/76; PULSE 78; O2SAT 98; BMI 39.9
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
== END 2023-11-20 11:55 | disposition home or self-care (01) ==
PROVIDERS: PCP Nurse Practitioner Family; Visit Provider Nurse Practitioner Family
DX: F41.8 Other specified anxiety disorders (principal)
CPT/HCPCS: 99213

== ENCOUNTER 2023-11-20 11:53 | Outpatient (REF) | payer OTHER, SELFPAY ==
[2023-11-20 13:24] LABS: MANUAL DIFF FLAG NO
[2023-11-20 13:43] LABS: Basophils Percent Auto 0.5 % (0-2); Eosinophils Absolute Auto 0.2 X10*3/uL (0.0-0.4); Eosinophils Percent Auto 3.2 % (0-4); Hematocrit 34.9 % (37.0-47.0); Imm Gran Abs Auto 0.02 X10*3/uL (0.00-0.03); Imm Gran Pct Auto 0.3 % (0.0-0.4); Lymphocytes Absolute Auto 1.7 X10*3/uL (1.2-4.9); Lymphocytes Percent Auto 22.8 % (20-40); Mean Corpuscular HGB Conc 31.5 g/dl (31.0-35.0); Mean Corpuscular Hemoglobin 27.5 pg (27.0-33.0); Mean Corpuscular Volume 87.3 fL (80.0-98.0); Mean Platelet Volume 10.5 fL (9.4-12.3); Monocytes Absolute Auto 0.6 X10*3/uL (0.1-1.2); Monocytes Percent Auto 7.7 % (2-11); Neutrophils Absolute Auto 4.9 x10*3/uL (2.0-8.3); Neutrophils Percent Auto 65.5 % (45-73); Platelet Count 327 X10*3/uL (160-400); White Blood Count 7.4 X10*3/uL (4.8-10.8)
[2023-11-20 14:10] LABS: Alanine Aminotransferase 31 U/L (0-31); Albumin Level 4.1 g/dL (3.5-5.0); Alkaline Phosphatase 93 U/L (39-117); Anion Gap 9 (12-20); Aspartate Amino Transferase 22 U/L (5-31); Bilirubin Total 0.3 mg/dL (0.0-1.0); Blood Urea Nitrogen 8 mg/dL (9-16); Carbon Dioxide 26 mmol/L (22-29); Chloride 107 mmol/L (96-108); Estimated Glomerular Filt Rate > 60; Glucose Random 84 mg/dL (60-115); Potassium 4.3 mmol/L (3.3-5.1); Sodium 138 mmol/L (135-145)
[2023-11-20 14:15] LABS: TSH reflex Free T4 1.63 uIU/mL (0.32-4.0)
== END 2023-11-20 11:54 | disposition home or self-care (01) ==
LOC: HO.HMGCLDS 11:53
PROVIDERS: PCP Nurse Practitioner Family; Visit Provider Nurse Practitioner Family
DX: E34.8 Other specified endocrine disorders (principal); R32 Unspecified urinary incontinence
CPT/HCPCS: 36415; 80053; 84443; 85025

== ENCOUNTER 2024-01-24 13:32 | Outpatient (AMB) | payer OTHER, SELFPAY ==
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
[2024-01-24 13:35] VITALS: BP 122/80; PULSE 69; O2SAT 96; BMI 40.0
== END 2024-01-24 14:12 | disposition home or self-care (01) ==
LOC: HO.HMGC 13:32
PROVIDERS: PCP Nurse Practitioner Family; Visit Provider Nurse Practitioner Family
DX: Z00.00 Encounter for general adult medical examination without abnormal findings (principal); D64.9 Anemia, unspecified; M25.462 Effusion, left knee
CPT/HCPCS: 99396

== ENCOUNTER 2024-07-03 08:15 | Outpatient (AMB) | payer OTHER, SELFPAY ==
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
--- OUTSIDE RECORDS SUMMARY | 2024-07-03 08:19 | XMS_ITS | Continuity of Care Document ---
Author Organization [facility], [facility] 3rd floor Address [address] [place] [address] Care Team Providers Care Field Logistics Coordinator Name Role Phone RIVKA BRANCH Primary Care Provider Assessment Encounter Date Assessment Date Assessment LastModified by Organization Details LastModified Time 06/23/2024 06/23/2024 followup as scheduled, copy to patient [email or web address] Not available 06/23/2024 18:28:45 Plan of Treatment Reminders Order Date Submit Date Provider Last Modified By Organization Details Last Modified Time Details Appointments PT INITIAL EVAL 2024 04:30P M Ambrosio davis DPT Not available Not available Not available PT FOLLOW-U P 2024 04:30P M Ambrosio davis DPT Not available Not available Not available PT FOLLOW-U P 2024 04:30P M Terry Fontaine , AT Not available Not available Not available POST OP 15 2024 03:30P M Jj Guevara MD Not available Not available Not available PT FOLLOW-U P 2024 02:00P M Terry Fontaine , AT Not available Not available Not available PT FOLLOW-U P 2024 05:00P M Terry Fontaine , AT Not available Not available Not available PT FOLLOW-U P 2024 03:00P M Terry Fontaine , AT Not available Not available Not available PT FOLLOW-U P 2024 03:00P M Terry Fontaine , AT Not available Not available Not available PT FOLLOW-U P 2024 02:30P M Ambrosio Mastoraki s, DPT Not available Not available Not available PT FOLLOW-U P 2024 02:30P Allison Wiseman s, DPT Not available Not available Not available PT FOLLOW-U P 2024 02:00P Allison Fontaine , AT Not available Not available Not available Lab None recorded . Referral None recorded . Procedures None recorded . Surgeries None recorded . Imaging None recorded . Medication Orders None recorded . Patient TargetsNo targets recorded. Patient InstructionsNo instructions recorded. Reason for Referral None Reported. Results Created Date Observation Date Name Description Value Unit Range Abnormal Flag Note LastModifiedBy Organization Detail LastModifiedTime 05/28/20 24 05/28/2024 XR, lumba r spine , 2 view [email or web address] ?Encry pted=s hAaTro YD8dLq bEUv6g %2BXZw aYqtaq 0bqfl% 2Fg9IQ a4ajBk vP9nXo QUaueC m3YtLR FvZl JJ8Austin HZtai3 9b9746 AC0Kqa XqDVKC kKiQtr MwF INTERFACE [facility] [address] [facility] [address], [place], [address], 05/28/2024 14:49:52 05/28/20 24 05/28/2024 XR, lumba r spine , 2 view [email or web address]:/ [email or web address] ?Encry pted=s hAaTro YD8dLq bEUv6g %2BXZw aYqtaq 0bqfl% 2Fg9IQ a4ajBk vP9nXo QUaueC m3YtLR FvZl JJ8mAn HZtai3 9k8234 AC0Kqa XqDVKC kKiQtr MwF INTERFACE [facility] [address] [employer] [address] [facility] [address], [place], [address], 05/28/2024 14:49:55 06/10/20 24 06/10/2024 XR, femur , 2 or more view http:/ [email or web address] ?Encry pted=s hAaTro YD8dLq bEUv6g %2BXZw aYqtaq 0bqfl% 2Fg9IQ a4ajBk vP9nXo QUaueC m3YtLR FvZlgJ JJ8mAn HZtai3 2a1780 AC0Kqb n6GUqW gKiQtr MwF INTERFACE [facility] [address], [place], [address], 06/10/2024 13:24:52 06/10/20 24 06/10/2024 XR, femur , 2 or more view [email or web address]:/ [email or web address] ?Encry pted=s Lucyo YD8dLq bEUv6g %2BXZw aYqtaq 0bqfl% 2Fg9IQ a4ajBk vP9nXo QUaueC m3YtLR FvZlgJ JJ8mAn HZtai3 8t7451 AC0Kqb n6GUqW gKiQtr MwF INTERFACE [facility] [address], [place], [address], 06/10/2024 13:24:54 Result Notes None recorded. Problems Name Problem SNOMED Code Status Onset Date Resolution Date Notes Provider Name and Address Organization Details Recorded Time No complaints 391346812 Active Status : 'A'; Not Available [facility] 4 09:15:23 Pain of right knee joint 8824274457323 00 Active 2023 ARCENIO hilton [place] - [facility] 4 14:54:31 Fracture of shaft of femur 63493402 Active 2023 Arely Barton MD [address], [place], [address] , [facility] 4 16:32:02 Patellar clunk syndrome 779824227 Active 2023 Arely Barton MD [address], [place], [address] , [facility] 4 16:32:02 Closed fracture of shaft of femur 14216551 Active 2023 MARIA ANTONIA TRACY [facility], [facility] 4 17:10:42 Pain 94910703 Active 2023 Nila Olivas PA-C [address], [place], [address] , [facility] 4 15:54:57 Chronic pain following trauma 138684793 Active 2023 Arely Barton MD [address], [place], [address] , [facility] 4 05:14:16 Pain in left lower limb 176125664 Active 2023 UZMABISI KOROMA [facility], [facility] 4 16:12:14 Pain of left lower leg 7838215429591 01 [facility] 4 16:14:59 Problem Notes None recorded. Procedures Surgical History Date Name Laterality Status Provider Name and Address Organization Details Recorded Time 4 SURGICAL HARDWARE REMOVAL (SURG) completed EFE MAYER [facility] 06/06/2024 11:28:49 Imaging Results None recorded. Procedure Notes None recorded. Medical Equipment None Reported. Allergies No known drug allergies Medications Name Sig Start Date Stop Date Status Note LastModified by Organization Details LastModified Time cyclobenzap rine 10 mg tablet Take 1 tablet twice a day by oral route. active Not Available Not Available No t Available buspirone 5 mg tablet active Not Available Not Available No t Available gabapentin 600 mg tablet Take 1 tablet 3 times a day by oral route. active Not Available Not Available No t Available doxycycline hyclate 100 mg capsule TAKE 1 CAPSULE TWICE A DAY FINISH ALL MEDICATIO N. 01/15 completed Not Available Not Available Not Available ketoconazol e 2 % shampoo APPLY TOPICALLY 2 TIMES A WEEK active Not Available Not Available No t Available albuterol sulfate 2.5 mg/3 mL (0.083 %) solution for nebulizatio n INHALE 1 VIAL VIA NEBULIZER EVERY 6 HOURS NEEDED FOR WHEEZING 01/15 completed Not Available Not Available Not Available trazodone 50 mg tablet active Not Available Not Available Not Available hydrocodone 5 mg-acetamin ophen 325 mg tablet Take 1 tablet every 6 hours by oral route with meal(s) for 7 days, for pain. 06/19 completed Not Available Not Available Not Available ondansetron HCl 4 mg tablet Take 1 tablet 3 times a day by oral route as needed for 7 days, for nausea. active Not Available Not Available No t Available prednisone 20 mg tablet TAKE 2 TABLETS BY MOUTH EVERY DAY FOR 5 DAYS 01/15 completed Not Available Not Available Not Available melatonin 3 mg tablet TAKE 2 TABLETS BY MOUTH EVERY EVENING AT BEDTIME 01/15 completed Not Available Not Available Not Available tramadol 50 mg tablet TAKE 1 TABLET BY MOUTH THREE TIMES A DAY 01/15 completed Not Available Not Available Not Available acetaminoph en 500 mg tablet Take 2 tablets every 8 hours by oral route as needed for 30 days, for pain. active Not Available Not Available No t Available butalbital- acetaminoph en-caffeine 50 mg-325 mg-40 mg tablet TAKE 2 TABLETS BY MOUTH 4 TIMES A DAY NEEDED FOR HEADACHE. *MUST LAST 10 DAYS PER INSURANCE * 01/15 completed Not Available Not Available Not Available pantoprazol e 20 mg tablet,paris yed release TAKE 1 TABLET BY MOUTH EVERY DAY active Not Available Not Available No t Available ferrous sulfate 325 mg (65 mg iron) tablet active Not Available Not Available Not Available naproxen sodium 220 mg tablet TAKE 1 TABLET BY MOUTH TWICE A DAY 01/15 completed Not Available Not Available Not Available oxybutynin chloride ER 5 mg tablet,exte nded release 24 hr TAKE 1 TABLET BY MOUTH EVERY DAY 01/15 completed Not Available Not Available Not Available Tylenol 325 mg tablet Take 2 tablets every 6 hours by oral route. active Not Available Not Available No t Available oxybutynin chloride 5 mg tablet Take 1 tablet twice a day by oral route. active Not Available Not Available No t Available oxycodone 5 mg tablet TAKE 1 TABLET BY MOUTH EVERY 4 HOURS NEEDED FOR SEVERE PAIN active Not Available Not Available No t Available enoxaparin 40 mg/0.4 mL subcutaneou s syringe INJECT 0.4MLS SUBCUTANE OUSLY DAILY 01/15 completed Not Available Not Available Not Available duloxetine 30 mg capsule,del ayed release TAKE 1 CAPSULE BY MOUTH TWICE A DAY active Not Available Not Available No t Available melatonin Melatonin 1MG Capsule 10/30 completed Statu s: 'Curr ent'; Not Available Not Available Not Available Fioricet active Not Available Not Avai lable Not Available ferrous gluconate 324 mg (38 mg iron) tablet TAKE 1 TABLET BY MOUTH EVERY DAY 01/15 completed Not Available Not Available Not Available oxycodone HCl-oxycodo ne-ASA 1-2 once a day in evening for pain 06/21 completed Statu s: 'Disc ontin ued'; Not Available Not Available Not Available OxyContin 10 mg tablet,ethel h resistant,e xtended release TAKE 1 TABLET BY MOUTH AT BEDTIME NEEDED FOR PAIN FOR 20 DAYS 01/15 completed Not Available Not Available Not Available Xtampza ER 27 mg capsule sprinkle TAKE 1 CAPSULE BY MOUTH EVERY 12 HOURS FOR 30 DAYS 01/15 completed Not Available Not Available Not Available Vitals None Recorded Social History None recorded. Functional Status None recorded. Mental Status None recorded. Family History Nothing Reported. Medical History Condition Response Allergies/Hayfever N Coronary Artery Disease N Breathing or lung disorders N Anxiety/Depression Y Emphysema N Nerve Disorders N Thyroid Problems N COPD N Pacemaker N Anemia N Kidney/Bladder Problems N Vascular Disease N Heart Trouble N Heart Attack (SC) N Gastrointestinal Disease N Cholesterol N Diabetes N Autoimmune disease N Bleeding Disorder N Orthotics N Arthritis N Seizures/Epilepsy N Blood Clot N AIDS/HIV N Congestive Heart Failure (CHF) N Acid Reflux (GERD) N Cancer N Stroke N Asthma N Peripheral Vascular Disease N Sleep Apnea N Hepatitis N Heart Disease N Rheumatoid Arthritis N Arrhythmia N Pulmonary Embolism N Headaches Y Fibromyalgia N Hypertension N Osteoporosis N Gynecological HistoryNo gynecological history recorded. Obstetrics History GPAL:G 0 P 0 0 0 0 Past Encounters Encounter ID Performer Location Encounter Start Date Encounter Closed Date Diagnosis/Indication Diagnosis SNOMED-CT Code Diagnosis ICD10 Code Diagnosis Note [id number] EMILIANO Murphy 3rd floor [address] [place] [address] 05/28/2024 14:33:00 06/27/2024 11:08:46 Lumbar radiculopathy 918437493 M54.16 [id number] Imelda Crain, EMILIANO [address] [place] [address] 06/10/2024 12:57:24 07/02/2024 13:15:01 Postoperative visit 313981232 Z48.89 Closed fra cture of shaft of femur 65960019 S72.355A [id number] MD Ivonne Rosales 3rd floor [address] [place] [address] 06/19/2024 08:30:02 06/19/2024 12:50:53 Fracture of shaft of femur 48934430 S72.302D [id number] MD Ivonne Rosales [address] [facility] [address] [place] [address] 06/23/2024 18:26:38 06/23/2024 18:29:19 Health Concerns Section Related Observation LastModified by Organization Detai ls LastModified Time None Recorded Concern Status LastModified by Organization Details LastModified Time None Recorded Payers Encounter Date Sequence Insurance Name Policy Number Policy Gomez Covered Member ID Gomez Member ID Guarantor Name 06/23/2024 1 [facility] - HEALTH NET PLAN (MEDICAID HMO) [facility] Mikaela Sanchez [id number] Mikaela Sanchez Notes Date Note Type Note Provider Name and Address Organization Details Recorded Time 06/23/2024 text/html Patient called requesting documentation of her surgery, and recovery time. She underwent removal of hardware from her left hip in the form of 3 screws, and the left femur with a deborah and screws removed on 06/03/2024. Although she is allowed to bear weight on this immediately, but anticipate 2 to 3 weeks of recovery for any soft tissue injury, and surgical incisions. Patient is allowed to weight-bear as tolerated. Please call for any further questions. jJ Guevara MD [address] [address], [place], [address], [facility] 06/23/2024 18:29:18 OBGyn Episode No OBEpisode recorded.
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
== END 2024-07-03 08:19 | disposition home or self-care (01) ==
LOC: HO.HMCC 08:15
PROVIDERS: PCP Nurse Practitioner Family; Visit Provider Nurse Practitioner Family
DX: S72.002A Fracture of unspecified part of neck of left femur, initial encounter for closed fracture (principal); V89.2XXA Person injured in unspecified motor-vehicle accident, traffic, initial encounter; T14.8XXA Other injury of unspecified body region, initial encounter; G47.00 Insomnia, unspecified

== ENCOUNTER → 2024-07-03 08:15 | Outpatient (BNVA) | payer OTHER, SELFPAY | PROVIDERS: PCP Nurse Practitioner Family; Visit Provider Nurse Practitioner Family | DX: V89.2XXA Person injured in unspecified motor-vehicle accident, traffic, initial encounter (principal); T14.8XXA Other injury of unspecified body region, initial encounter; S72.002A Fracture of unspecified part of neck of left femur, initial encounter for closed fracture; G47.00 Insomnia, unspecified ==

== ENCOUNTER 2024-09-01 08:24 | Outpatient (AMB) | payer OTHER, SELFPAY ==
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
[2024-09-01 08:33] VITALS: BP 130/84; PULSE 84; O2SAT 98
== END 2024-09-01 09:09 | disposition home or self-care (01) ==
PROVIDERS: PCP Nurse Practitioner Family; Visit Provider Physician Assistant
DX: M25.469 Effusion, unspecified knee (principal); M54.6 Pain in thoracic spine

== ENCOUNTER → 2024-09-01 08:24 | Outpatient (BNVA) | payer OTHER, SELFPAY | PROVIDERS: PCP Nurse Practitioner Family; Visit Provider Physician Assistant | DX: M54.6 Pain in thoracic spine (principal); M25.462 Effusion, left knee | CPT/HCPCS: 99212 ==

== ENCOUNTER 2024-09-04 13:33 | Outpatient (REF) | payer OTHER, SELFPAY ==
--- NOTE | ~2024-09-04 | US_ITS ---
EXAMINATION: US TRIPLEX LOWER EXTREMITY, LEFT CLINICAL INFORMATION: Left lower extremity pain and swelling. COMPARISON: None available. TECHNIQUE: Color-flow triplex imaging with spectral analysis and compression Doppler were performed on the left lower extremity. FINDINGS: Respiratory variation, normal compression and augmented flow are noted throughout the left lower extremity. The visualized common femoral vein, superficial femoral vein, profunda femoral vein, popliteal vein and midcalf peroneal and posterior tibial venous segments show no evidence of deep venous thrombosis. There is no Cheng's cyst. US/US venous duplex LE LT IMPRESSION: No evidence of deep venous thrombosis involving the left lower extremity. Electronically signed by: Mikhail Mijares MD 09/04/2024 02:19 PM EDT
--- OUTSIDE RECORDS SUMMARY | 2024-09-04 17:07 | XMS_ITS | Clinical Summary ---
Author Organization [facility] ity Address [address] [place] [address] Care Team Providers Care Marketing Project Coordinator Name Role Phone Unavailable Primary Care Provider Unavailabl e Social History Tobacco Use Types Packs/Day Years Used Date Smoking Tobacco: Never Assessed Sex and Gender Information Value Date Recorded Sex Assigned at Not on file Legal Sex Male 1:39 AM EST Gender Identity Not on file Sexual Orientation Not on file Plan of Treatment Health Maintenance Due Date Last Done Comments DTaP,Tdap,and Td Vaccines (1 - Tdap) 12/07/1999 Hepatitis B Vaccines (1 of 3 - 19+ 3-dose series) 12/07/1999 COVID-19 Vaccine (2023-2 5 season) 2024 Influenza Vaccine (#1) 2024 HIB Vaccines Aged Out No longer eligi ble based on patient's age to complete this topic HPV Vaccines Aged Out No longer eligi ble based on patient's age to complete this topic Hepatitis A Vaccines Aged Out No long er eligible based on patient's age to complete this topic IPV Vaccines Aged Out No longer eligi ble based on patient's age to complete this topic MMR Vaccines Aged Out No longer eligi ble based on patient's age to complete this topic Meningococcal ACWY Vaccine Aged Out N o longer eligible based on patient's age to complete this topic Meningococcal B Vacine Aged Out No lo nger eligible based on patient's age to complete this topic Pneumococcal Vaccine: Pediat rics (0 to 5 Years) and At-Risk Patients (6 to 64 Years) Aged Out No longer eligible b ased on patient's age to complete this topic RSV Immunization Patients Un sam 20 months Aged Out No longer eligible b ased on patient's age to complete this topic Varicella Vaccines Aged Out No longer eligible based on patient's age to complete this topic
== END 2024-09-04 13:34 | disposition home or self-care (01) ==
LOC: HO.HMGCX 13:33
PROVIDERS: PCP Nurse Practitioner Family; Visit Provider Physician Assistant
DX: M25.562 Pain in left knee (principal); M25.462 Effusion, left knee
CPT/HCPCS: 93971

== ENCOUNTER → 2024-09-04 13:35 | Outpatient (BNV) | payer OTHER, SELFPAY | PROVIDERS: PCP Nurse Practitioner Family; Visit Provider Radiology Diagnostic Radiology | DX: R22.42 Localized swelling, mass and lump, left lower limb (principal) | CPT/HCPCS: 93971 ==

== ENCOUNTER 2024-10-23 06:55 | Outpatient (AMB) | payer OTHER, SELFPAY ==
--- OUTSIDE RECORDS SUMMARY | 2024-10-23 06:59 | XMS_ITS | Clinical Summary ---
Author Organization [facility] ity Address [address] [place] [address] Care Team Providers Care Auto Washer Name Role Phone Unavailable Primary Care Provider [...] Vaccine (2023-2 5 season) 2024 Influenza Vaccine (Season Ended) 2025 HIB Vaccines Aged Out No longer eligi [...] age to complete this topic Meningococcal B Vaccine Aged Out No l onger eligible based on patient's age to complete [...]
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
== END 2024-10-23 07:48 | disposition home or self-care (01) ==
LOC: HO.HMCC 06:56
PROVIDERS: PCP Nurse Practitioner Family; Visit Provider Nurse Practitioner Family
DX: S32.009A Unspecified fracture of unspecified lumbar vertebra, initial encounter for closed fracture (principal); V89.2XXA Person injured in unspecified motor-vehicle accident, traffic, initial encounter; M25.552 Pain in left hip; Z04.3 Encounter for examination and observation following other accident

== ENCOUNTER → 2024-10-23 06:55 | Outpatient (BNVA) | payer OTHER, SELFPAY | PROVIDERS: PCP Nurse Practitioner Family; Visit Provider Nurse Practitioner Family ==

== ENCOUNTER 2024-10-24 13:16 | Outpatient (AMB) | payer OTHER, SELFPAY ==
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
[2024-10-24 13:23] VITALS: BP 114/67; PULSE 83; BMI 36.6
--- OUTSIDE RECORDS SUMMARY | 2024-10-24 13:37 | XMS_ITS | Clinical Summary ---
Author Organization [facility] ity Address [address] [place] [address] Care Team Providers Care Ore Roaster Name Role Phone Unavailable Primary Care Provider [...]
== END 2024-10-24 14:02 | disposition home or self-care (01) ==
LOC: HO.HGI 13:17
PROVIDERS: PCP Nurse Practitioner Family; Visit Provider Internal Medicine
DX: K21.9 Gastro-esophageal reflux disease without esophagitis (principal); F12.90 Cannabis use, unspecified, uncomplicated; Z74.09 Other reduced mobility
CPT/HCPCS: 99204

== ENCOUNTER → 2024-10-24 13:16 | Outpatient (BNVA) | payer OTHER, SELFPAY | PROVIDERS: PCP Nurse Practitioner Family; Visit Provider Internal Medicine | DX: K21.9 Gastro-esophageal reflux disease without esophagitis (principal); F12.90 Cannabis use, unspecified, uncomplicated; Z74.09 Other reduced mobility | CPT/HCPCS: 99202 ==

== ENCOUNTER 2024-11-03 13:35 | Outpatient (AMB) | payer OTHER, SELFPAY ==
[2024-11-03 13:40] VITALS: BP 122/80; PULSE 89; O2SAT 98; BMI 38.9
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
--- OUTSIDE RECORDS SUMMARY | 2024-11-03 13:56 | XMS_ITS | Clinical Summary ---
Author Organization [facility] ity Address [address] [place] [address] Care Team Providers Care Jewel Grinder Name Role Phone Unavailable Primary Care Provider [...]
== END 2024-11-03 14:46 | disposition home or self-care (01) ==
LOC: HO.HMCC 13:36
PROVIDERS: PCP Nurse Practitioner Family; Visit Provider Nurse Practitioner Family
DX: R03.0 Elevated blood-pressure reading, without diagnosis of hypertension (principal); M25.552 Pain in left hip; M54.6 Pain in thoracic spine; N62 Hypertrophy of breast; V89.2XXA Person injured in unspecified motor-vehicle accident, traffic, initial encounter

== ENCOUNTER → 2024-11-03 13:35 | Outpatient (BNVA) | payer OTHER, SELFPAY | PROVIDERS: PCP Nurse Practitioner Family; Visit Provider Nurse Practitioner Family | DX: R03.0 Elevated blood-pressure reading, without diagnosis of hypertension (principal); M25.552 Pain in left hip; M54.6 Pain in thoracic spine; N62 Hypertrophy of breast; V89.2XXD Person injured in unspecified motor-vehicle accident, traffic, subsequent encounter | CPT/HCPCS: 96127; 99212 ==

== ENCOUNTER 2025-01-27 08:53 | Outpatient (AMB) | payer OTHER, SELFPAY ==
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
[2025-01-27 09:08] VITALS: BP 124/82; PULSE 80; RESP 16; O2SAT 98; BMI 39.9
--- OUTSIDE RECORDS SUMMARY | 2025-01-27 09:09 | XMS_ITS | Clinical Summary ---
Author Organization [facility] ity Address [address] [place] [address] Care Team Providers Care Deputy Sheriff K9 Handler Name Role Phone Unavailable Primary Care Provider [...] 12/07/1999 COVID-19 Vaccine (2023-2 5 season) 2024 Depression Screening 06/25/2024 Influenza Vaccine (#1) 2025 HIB Vaccines Aged Out No longer [...] 5 Years) and At-Risk Patients (6 to 49 Years) Aged Out No longer eligible b ased on patient's age to complete this topic RSV Immunization Patients Un sam 20 months Aged Out No longer eligible b ased on patient's age to complete this topic Varicella Vaccines Aged Out No longer eligible based on patient's age to complete this topic
== END 2025-01-27 10:10 | disposition home or self-care (01) ==
PROVIDERS: PCP Nurse Practitioner Family; Visit Provider Nurse Practitioner Family
DX: S72.002A Fracture of unspecified part of neck of left femur, initial encounter for closed fracture (principal); M25.552 Pain in left hip; V89.2XXA Person injured in unspecified motor-vehicle accident, traffic, initial encounter; M25.469 Effusion, unspecified knee

== ENCOUNTER → 2025-01-27 08:53 | Outpatient (BNVA) | payer OTHER, SELFPAY | PROVIDERS: PCP Nurse Practitioner Family; Visit Provider Nurse Practitioner Family | DX: M25.552 Pain in left hip (principal); S72.002D Fracture of unspecified part of neck of left femur, subsequent encounter for closed fracture with routine healing; M25.462 Effusion, left knee; V89.2XXD Person injured in unspecified motor-vehicle accident, traffic, subsequent encounter; Z98.890 Other specified postprocedural states | CPT/HCPCS: 96127; 99212 ==

== ENCOUNTER 2025-06-02 10:53 | Outpatient (REF) | payer MEDICARE, MEDICAID, SELFPAY ==
[2025-06-02 13:35] LABS: Appearance Urine Turbid; Glucose Urine UA Negative (Negative); PH 6.0 (5.0-9.0); Specific Gravity - Urine >= 1.030 (1.005-1.025); UMIC TRIGGER UACC YES
[2025-06-02 13:44] LABS: MANUAL DIFF FLAG NO
[2025-06-02 14:02] LABS: Hematocrit 31.9 % (37.0-47.0); Hemoglobin 9.8 g/dl (12.0-16.0); Imm Gran Abs Auto 0.02 X10*3/uL (0.00-0.03); Imm Gran Pct Auto 0.3 % (0.0-0.4); Lymphocytes Absolute Auto 1.4 X10*3/uL (1.2-4.9); Mean Corpuscular HGB Conc 30.7 g/dl (31.0-35.0); Mean Corpuscular Hemoglobin 26.6 pg (27.0-33.0); Mean Corpuscular Volume 86.7 fL (80.0-98.0); NRBC Abs Auto 0.000 X10*3/uL (0.0-0.012); NRBC Pct Auto 0.0 /100WBC (0.0-0.2); Platelet Count 358 X10*3/uL (160-400); Red Blood Count 3.68 X10*6/uL (4.20-5.50); White Blood Count 6.2 X10*3/uL (4.8-10.8)
[2025-06-02 14:56] LABS: Alanine Aminotransferase 77 U/L (0-31); Albumin Level 4.5 g/dL (3.5-5.0); Alkaline Phosphatase 126 U/L (39-117); Anion Gap 11 (12-20); Aspartate Amino Transferase 48 U/L (5-31); Blood Urea Nitrogen 12 mg/dL (9-16); Calcium 9.3 mg/dL (8.4-10.2); Carbon Dioxide 27 mmol/L (22-29); Chloride 107 mmol/L (96-108); Cholesterol 217 mg/dL (<200); Estimated Glomerular Filt Rate > 60; HDL Cholesterol 62 mg/dL (>40); Potassium 3.9 mmol/L (3.3-5.1); Sodium 141 mmol/L (135-145); Total Protein 7.4 g/dL (6.5-8.0); Triglycerides 75 mg/dL (<150)
== END 2025-06-02 10:54 | disposition home or self-care (01) ==
LOC: HO.HMGCLDS 10:53
PROVIDERS: PCP Nurse Practitioner Family; Visit Provider Nurse Practitioner Family
DX: M79.662 Pain in left lower leg (principal); R03.0 Elevated blood-pressure reading, without diagnosis of hypertension; S09.8XXA Other specified injuries of head, initial encounter; Z13.6 Encounter for screening for cardiovascular disorders; R51.9 Headache, unspecified; Z98.890 Other specified postprocedural states; Z96.652 Presence of left artificial knee joint; V00.831A Fall from motorized mobility scooter, initial encounter
CPT/HCPCS: 36415; 80053; 80061; 81001; 84443; 85025; 99212

== ENCOUNTER 2025-06-02 11:09 | Outpatient (AMB) | payer MEDICARE, MEDICAID, SELFPAY ==
[2025-06-02 11:28] VITALS: BP 120/80; PULSE 81; O2SAT 98; BMI 41.0
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
== END 2025-06-02 12:34 | disposition home or self-care (01) ==
LOC: HO.HMCC 11:10
PROVIDERS: PCP Nurse Practitioner Family; Visit Provider Nurse Practitioner Family
DX: M79.662 Pain in left lower leg (principal); S09.8XXA Other specified injuries of head, initial encounter; S09.90XA Unspecified injury of head, initial encounter